=== PATIENT | female | born 1940 | race Caucasian/White ===

== ENCOUNTER 2022-04-18 10:30 | Outpatient (CLI) | payer MEDICARE, OTHER, SELFPAY ==
[2022-04-18 10:40] VITALS: BP 150/83; PULSE 82; RESP 16; O2SAT 96
[2022-04-18] MEDS: BRIMONIDINE TARTRATE 0.2% OPHTH 1 DROP EYE-BOTH ×2 (10:44→11:36)
[2022-04-18] MEDS: TETRACAINE 0.5% OPHTH 1 DROP EYE-BOTH ×3 (10:44→11:23)
--- NOTE | 2022-04-18 12:59 | W.PM.OPTPROC ---
Procedure Note Date of procedure: 04/18/[address] [facility] bill your pro fee for this procedure?: Yes Procedure Description: SURGEON: Shobha Panchal MD PREOPERATIVE DIAGNOSIS: Posterior capsular opacity, right and left eye POSTOPERATIVE DIAGNOSIS: Posterior capsular opacity, right and left eye PROCEDURE: YAG laser capsulotomy, both eyes ANESTHESIA: Topical. ESTIMATED BLOOD LOSS: None PATHOLOGY SPECIMEN: None COMPLICATIONS: None INDICATIONS: See consult note for details. The risks, benefits and alternatives of the procedure were explained to the patient, who elected to proceed and signed informed consent to do so. PROCEDURE: The patient was brought to the pre-holding area where the right and left eyes were identified as the operative eyes. I placed my initials above the eyes. The following was given in both eyes: The patient received 2 sets of 1 drop of 0.5% tetracaine and 1 drop of 1% tropicamide. They also received 1 drop of 0.2% brimonidine. They received 1 drop of 0.5% tetracaine immediately prior to bringing them back for the procedure. The patient was then brought to the procedure room where the right and left eyes were again identified as the operative eyes. A YAG Branden capsulotomy lens was placed on the right eye. The laser was administered using a total number of 10 shots with an energy of 2.4 mJ per shot for a total energy of 24 mJ. The patient tolerated the procedure well. A YAG Branden capsulotomy lens was placed on the left eye. The laser was administered using a total number of 16 shots with an energy of 2.4 mJ per shot for a total energy of 38 mJ. The patient tolerated the procedure well. DISPOSITION: The patient was taken back to the pre-holding area and given 1 drop of 0.2% brimonidine in both eyes. They were discharged to home in stable condition. The patient was instructed to call me or go to the emergency department with any sudden change, including dramatic loss of vision, severe pain in the eye or eyebrow region, nausea, or vomiting. The patient was instructed to use the 0.2% brimonidine 1 drop 2 times a day in both eyes for 1 week. The patient will follow up in the clinic in 1-2 weeks. Surgeon: Shobha Panchal MD
== END 2022-04-18 11:36 | disposition home or self-care (01) ==
PROVIDERS: Visit Provider Ophthalmology
DX: H26.9 Unspecified cataract (principal)
CPT/HCPCS: 66821; A9270

== ENCOUNTER 2022-12-26 20:01 | Emergency (ER) | payer MEDICARE, OTHER, SELFPAY ==
[2022-12-26 20:16] VITALS: BP 165/86; PULSE 87; RESP 18; TEMP 37.1; O2SAT 96; BMI 28.2
--- NOTE | 2022-12-26 20:35 | CRLHL7_ITS ---
For Patients: As a result of the Century Cures Act, medical imaging exams and procedure reports are released immediately into your electronic medical record. You may view this report before your referring provider. If you have questions, please contact your health care provider. INDICATION: Right posterior rib pain, chest pain TECHNIQUE: Chest and right ribs 2 views. COMPARISON: None FINDINGS: Cardiovascular and mediastinum: Heart size and vasculature are normal in caliber and appearance. Mediastinum is within normal limits. Lungs and pleural spaces: Lungs are clear. No sign of infiltrate or mass. No sign of pleural effusion. No pneumothorax. Biapical pleural thickening likely due to prior inflammatory process. Bones and soft tissues: Mild S-shaped scoliosis. Detailed oblique images of the right ribs demonstrate no fractures or bone lesions. IMPRESSION: Unremarkable chest and right ribs. Dictated by Rena Block MD @ 12/26/2022 9:19:22 PM (Electronically Signed)
--- NOTE | 2022-12-26 20:35 | ED.GENADULT ---
HPI - General Adult General Chief complaint: Abdominal Pain Stated complaint: Pain on right side bottom of her ribcage Time Seen by Provider: 12/26/22 20:24 History of Present Illness HPI narrative: This 82-year-old female comes in with pain along her right posterior ribs that began this afternoon. She does not report any particular injury event or strenuous activity. She does not report a cough or respiratory symptoms. She has not noted any skin changes. The pain is reproduced with certain movements. Related Data Home Medications Medication Instructions Recorded Confirmed alendronate 70 mg tablet 70 mg PO QWEEK 12/26/22 12/26/22 atorvastatin 10 mg tablet 10 mg PO DAILY 12/26/22 12/26/22 biotin 12/26/22 cetirizine 10 mg capsule (All Day 10 mg PO DAILY PRN 12/26/22 12/26/22 Allergy (cetirizine)) doxycycline hyclate 100 mg tablet 100 mg PO BID 12/26/22 12/26/22 famotidine 20 mg tablet 20 mg PO BID 12/26/22 12/26/22 Previous Rx's Medication Instructions Recorded hydrocodone 5 mg-acetaminophen 325 1 tab PO Q4-6H PRN pain #15 tabs 12/26/22 mg tablet Allergies Allergy/AdvReac Type Severity Reaction Status Date / Time No Known Drug Allergies Allergy Verified 12/26/22 20:21 Review of Systems Status of ROS: Reports: 10 or more systems reviewed and unremarkable except as noted in History and below Narrative: Constitutional: No fevers, no weight gain or loss. Eyes: No discharge. No vision changes. HENT: No congestion, no sore throat, no ear pain. Cardiovascular: No palpitations. Respiratory: No shortness of breath, no wheezes, no cough. Gastrointestinal: No abdominal pain, no vomiting, no diarrhea. Genitourinary: No dysuria, no hematuria. Musculoskeletal: Normal range of motion. Skin: No rashes, no pruritis. Neurological: No dizziness, weakness, sensory change, speech change. Endo/Heme/Allergies: No bruising or bleeding. No polydipsia. Pysch: no suicidality, no anxiety, no insomnia. All other systems reviewed and are negative. PFSH PFSH Social History Smoking Status: Never smoker Non-prescribed substance use: denies use Exam Narrative: Exam Narrative: Constitutional: Well-developed, well-nourished, no acute distress. HEENT: Normocephalic, atraumatic. Neck: Normal range of motion. Nontender. Supple. Heart: Regular. No murmurs. Normal rate. Intact distal pulses. Lungs: Clear to auscultation. No chest discomfort. No wheezes, rhonchi, or rales. Abdomen: Normal bowel sounds. Nontender. No rebound tenderness. Genitalia: Deferred. Back: No midline tenderness. Normal range of motion. Pain is located along the right posterior lateral ribs and is reproducible with certain movements. No skin changes in the back. Extremities: Normal range of motion. No injury. Skin: Intact. No rash. Warm. No erythema or pallor. Neurologic: No altered sensation. No weakness. Alert and oriented. Psychiatric: No suicidality. No anxiety or depression. No insomnia. Nursing notes and vitals signs are reviewed. Const: Vital Signs, click to edit/add: Vital Signs - 24 hr 12/26/22 20:16 Temperature 98.7 F Pulse Rate [Pulse Oximeter] 87 Respiratory Rate 18 [facility] 165/86 H Pulse Oximetry 96 Oxygen Delivery Me thod Room Air Course Vital Signs Vital signs: Initial Vital Signs Temperature 98.7 F 12/26/22 20:16 Temperature Source Temporal Artery Scan 12/26/22 20:16 Pulse Rate 87 12/26/22 20:16 Respiratory Rate 18 12/26/22 20:16 Blood Pressure 165/86 H 12/26/22 20:16 Blood Pressure Mean 112 H 12/26/22 20:16 Blood Pressure Position Supine 12/26/22 20:16 Pulse Oximetry 96 12/26/22 20:16 Oxygen Delivery Method Room Air 12/26/22 20:16 Vital Signs Temperature 98.7 F 12/26/22 20:16 Pulse Rate 87 12/26/22 20:16 Respiratory Rate 18 12/26/22 20:16 Blood Pressure 165/86 H 12/26/22 20:16 Pulse Oximetry 96 12/26/22 20:16 Oxygen Delivery Method Room Air 12/26/22 20:16 Temperature 98.7 F 12/26/22 20:16 Pulse Rate 87 12/26/22 20:16 Respiratory Rate 18 12/26/22 20:16 Blood Pressure 165/86 H 12/26/22 20:16 Pulse Oximetry 96 12/26/22 20:16 Oxygen Delivery Method Room Air 12/26/22 20:16 Medical Decision Making MDM Narrative Medical decision making narrative: This patient comes in with pain along her right lateral posterior ribs. There was no particular injury event or strenuous activity. She has no skin changes to suggest shingles. Chest x-ray shows no acute findings. She has normal vital signs. She did receive a rib belt and I did provide a prescription for some tablets of [place]. Most likely this is a chest wall pain that should resolve over time. At the time of discharge the patient appears safe for outpatient management. The treatment plan is reviewed along with written and verbal return precautions. Reasons to return and the importance of close followup were also reviewed. Imaging Data Chest x-ray: Radiologist's impression: Unremarkable chest and right ribs. Discharge Plan Discharge Clinical Impression: Rib pain on right side Patient Disposition: Home w/ Parent or Adult Condition: Unchanged Additional Instructions: Wear rib belt as needed. Take medication as needed and indicated. Follow up with MD or return if worsening. Prescriptions: New hydrocodone-acetaminophen 5-325 mg tablet 1 tab PO Q4-6H PRN (Reason: pain) Qty: 15 0RF No Action atorvastatin 10 mg tablet 10 mg PO DAILY famotidine 20 mg tablet 20 mg PO BID doxycycline hyclate 100 mg tablet 100 mg PO BID alendronate 70 mg tablet 70 mg PO QWEEK biotin All Day Allergy (cetirizine) 10 mg capsule 10 mg PO DAILY PRN Follow Up/Referrals: Provider,Not a Local [Referring] - Stand Alone Forms: Prior Knowledge Info Instructions
[2022-12-26] MEDS: HYDROCODONE-ACETAMIN 5-325 MG 1 TAB PO (21:47)
== END 2022-12-26 21:48 | disposition home or self-care (01) ==
PROVIDERS: Emergency Provider Emergency Medicine Emergency Medical Services; PCP Family Medicine
DX: R07.81 Pleurodynia (principal)
CPT/HCPCS: 71101; 99283; 99284; A9270

== ENCOUNTER 2023-03-20 03:45 | Inpatient (IN) | payer MEDICARE, OTHER, SELFPAY ==
[2023-03-20] VITALS (35 sets, daily range): BP systolic 112–169; BP diastolic 71–94; PULSE 71–98; RESP 16–22; TEMP 36.3–37; O2SAT 90–99; BMI 27.5; BMI 27.3
--- NOTE | 2023-03-20 04:21 | CRLHL7_ITS ---
For Patients: As a result of the Century Cures Act, medical imaging exams and procedure reports are released immediately into your electronic medical record. You may view this report before your referring provider. If you have questions, please contact your health care provider. INDICATION: bloody diarrhea, suspect ischemic TECHNIQUE: CT abdomen and pelvis with 79 cc Isovue 370 IV contrast. COMPARISON: None. FINDINGS: Hepatic steatosis. Gallbladder and biliary tree are normal. The spleen, adrenal glands and pancreas are within normal limits. Small bilateral renal cysts. No hydronephrosis. Unremarkable appearing bladder. No evidence of obstruction. Colonic wall thickening and mild inflammation predominately involving the transverse colon and proximal descending colon. There is relative hypoenhancement of the colonic wall near the splenic flexure. The sigmoid colon is decompressed with an outpouching measuring 2.6 x 2.5 cm likely representing a large diverticulum. No evidence of diverticulitis. A contained perforation and additional consideration although felt less likely. No significant free fluid and no free air. Small fat containing umbilical hernia. Abdominal aorta abnormal, with moderate aortoiliac atherosclerosis. Pelvic organs are unremarkable. Passive bibasilar atelectasis. IMPRESSION: Colonic wall thickening and mild inflammation predominately involving the transverse colon and proximal descending colon. There is relative hypoenhancement of the colonic wall near the splenic flexure. Findings may indicate infectious/inflammatory colitis although ischemic colitis cannot be excluded given hypoenhancement and at the splenic flexure. However, there is no evidence of portal venous gas or pneumatosis. Recommend correlation with lactic acid. Patent portal vein. Patent mesenteric arteries. The sigmoid colon is decompressed with an outpouching measuring 2.6 x 2.5 cm likely representing a large diverticulum. No evidence of diverticulitis. A contained perforation is felt less likely. Evaluation for active GI bleed and ischemic colitis is limited on this single phase study. Please note that all CT scans at this facility use dose modulation, iterative reconstruction, and/or weight-based dosing when appropriate to reduce radiation dose to as low as reasonably achievable. Dictated by Mauricio Castillo MD @ 03/20/2023 7:01:16 AM (Electronically Signed)
--- NOTE | 2023-03-20 04:23 | ED.GIBLEED ---
HPI - GI Bleed General Chief complaint: GI Bleed Stated complaint: Feeling Ill Time Seen by Provider: 03/20/23 04:05 Source: patient and family Mode of arrival: ambulatory Limitations: no limitations History of Present Illness HPI Narrative: 82-year-old female with no significant history of chronic GI disease or coronary artery disease, nonsmoker presents to the emergency department with abdominal pain that woke her from sleep at about 3:00 a.m.. Went to bed at about 10 30 last night, feeling well with no signs of oncoming illness. Awoke feeling weak and sweaty with lower abdominal ache. She was mildly nauseated and thought that she was likely going to have a bowel movement, assured herself to the toilet. Once there she had several very loose bowel movements over the course of 15 minutes. She did not look at them to inspect the contents and did flush them. Reports that after about 15 minutes she must have passed out while on the toilet and slumped over as she woke up with her head against the wall. Estimates that she could not have been out for more than a couple of minutes. There was no seizure-like activity, tongue biting. The event was unwitnessed. Reports that she was able to get herself up and clean herself with a wet washcloth, noticing that there were stringy blood clots and aaron red blood. She is uncertain if there were was blood in the diarrhea as she had flushed it. She has not continued to notice persistent bleeding. She still has achy lower abdominal pain, right and left and suprapubic region. No dysuria. No trauma or injury. No rectal pain. No gynecological changes. No prior history of similar symptoms. Her last colonoscopy was well over 10 years ago she reports but has no history of chronic GI illness family history of such or family history of GI cancers. She says that she actually does have a upcoming colonoscopy scheduled. She does not use any anticoagulants including NSAIDs or aspirin. No history of kidney disease. She did not try any interventions to help with her symptoms prior to coming to the ED. Past medical history benign per her report. Surgical history only notable for breast biopsy in a tubal ligation. No long-term medications, no allergies. ROS notable for the generalized and GI symptoms as above, otherwise denies times 12 systems Related Data Home Medications Medication Instructions Recorded Confirmed atorvastatin 10 mg tablet 10 mg PO DAILY 12/26/22 03/20/23 biotin 12/26/22 cetirizine 10 mg capsule (All Day 10 mg PO DAILY PRN 12/26/22 12/26/22 Allergy (cetirizine)) doxycycline hyclate 100 mg tablet 100 mg PO BID 12/26/22 12/26/22 famotidine 20 mg tablet 20 mg PO BID 12/26/22 12/26/22 Previous Rx's Medication Instructions Recorded hydrocodone 5 mg-acetaminophen 325 1 tab PO Q4-6H PRN pain #15 tabs 12/26/22 mg tablet Allergies Allergy/AdvReac Type Severity Reaction Status Date / Time No Known Drug Allergies Allergy Verified 03/20/23 05:28 PFSH PFS Social History Smoking Status: Never smoker Do you use any of these nicotine containing products: None Second hand tobacco smoke exposure: No How often do you have a drink containing alcohol: never AUDIT-C Alcohol total score: 0 Non-prescribed substance use: denies use service: No Exam Const: Vital Signs, click to edit/add: Vital Signs - 24 hr 03/20/23 03:47 03/20/23 03:57 03/20/23 04:02 Temperature 97.4 F L Pulse Rate Pulse Rate [Pulse Oximeter] 81 Respiratory Rate 16 16 Blood Pressure 140/81 H 140/77 H Blood Pressure [Ri ght Upper Arm] 147/85 H Pulse Oximetry 95 Oxygen Delivery Me thod Room Air 03/20/23 04:03 03/20/23 04:15 03/20/23 04:33 Temperature Pulse Rate 81 81 Pulse Rate [Pulse Oximeter] Respiratory Rate Blood Pressure 112/92 H Blood Pressure [Ri ght Upper Arm] Pulse Oximetry 95 96 Oxygen Delivery Me thod 03/20/23 04:35 03/20/23 04:45 03/20/23 05:12 Temperature Pulse Rate 81 86 91 Pulse Rate [Pulse Oximeter] Respiratory Rate Blood Pressure Blood Pressure [Ri ght Upper Arm] Pulse Oximetry 95 90 97 Oxygen Delivery Me thod 03/20/23 05:13 03/20/23 05:14 03/20/23 05:15 Temperature Pulse Rate 91 88 87 Pulse Rate [Pulse Oximeter] Respiratory Rate Blood Pressure Blood Pressure [Ri ght Upper Arm] Pulse Oximetry 98 96 97 Oxygen Delivery Me thod 03/20/23 05:30 03/20/23 05:32 03/20/23 05:45 Temperature Pulse Rate 89 91 91 Pulse Rate [Pulse Oximeter] Respiratory Rate Blood Pressure 167/89 H Blood Pressure [Ri ght Upper Arm] Pulse Oximetry 97 96 92 Oxygen Delivery Me thod 03/20/23 06:00 03/20/23 06:02 03/20/23 06:15 Temperature Pulse Rate 88 88 90 Pulse Rate [Pulse Oximeter] Respiratory Rate Blood Pressure 162/87 H Blood Pressure [Ri ght Upper Arm] Pulse Oximetry 94 94 97 Oxygen Delivery Me thod 03/20/23 06:30 03/20/23 06:32 03/20/23 06:45 Temperature Pulse Rate 84 84 98 Pulse Rate [Pulse Oximeter] Respiratory Rate Blood Pressure 164/87 H Blood Pressure [Ri ght Upper Arm] Pulse Oximetry 96 96 94 Oxygen Delivery Me thod 03/20/23 07:11 Temperature 98.6 F Pulse Rate Pulse Rate [Pulse Oximeter] 90 Respiratory Rate 22 Blood Pressure Blood Pressure [Ri ght Upper Arm] Pulse Oximetry 95 Oxygen Delivery Me thod Room Air Documenting provider has reviewed patient's vital signs: yes Common normals: no apparent distress and alert General appearance: cooperative, comfortable and well kempt HENMT: Common normals: normocephalic Head and scalp: normocephalic Face and sinus: normal facial exam Mouth: oral and palatal mucosa normal Eye: Common normals: conjunctivae normal General eye: normal appearance of both eyes Conjunctiva: conjunctiva(e) normal Neck & C-Spine: Common normals: full ROM and no lymphadenopathy General: normal visual inspection Resp: Common normals: normal respiratory effort, no use of accessory muscles and clear to auscultation bilaterally Effort & inspection: able to speak in complete sentences Auscultation: clear to auscultation bilaterally Cardio: Common normals: regular rate, regular rhythm, S1 normal heart sound, S2 normal heart sound and no murmurs Rate: regular rate Rhythm: regular rhythm Heart sounds: S1 normal and S2 normal GI: Common normals: Normal to inspection, nondistended, normoactive bowel sounds present, soft to palpation, no hepatosplenomegaly and no masses Palpation: soft and no hepatosplenomegaly Other: Mildly tender diffusely to lower abdomen without any obvious mass. Scarring consistent with old technique of tubal ligation. : Common normals: no CVA tenderness Bladder/kidney exam: no CVA tenderness Back & Pelvis: Common normals: no CVA tenderness Extremity: Common normals: normal to inspection, full ROM, normal capillary refill and no pedal edema Neuro: Sensorium/orientation: alert Speech: speech normal Motor exam: strength 5/5 throughout and no movement abnormalities noted Psych: Appearance: well kempt Attitude: engaged Activity/motor behavior: appropriate eye contact Mood and affect: euthymic mood Memory/cognition: memory grossly intact Insight: insight good Judgement: judgment good Skin: Common normals: no rashes or lesions noted General skin exam: no rashes or lesions noted Course Course ED Course: Differential diagnosis including ischemic bowel, infectious colitis, volvulus, tumor, autoimmune disease, inflammatory disease, av malformation, among others. No signs of acute hypotension or hemorrhagic shock. I suspect that she did in fact have a syncopal episode and I do think that she is under estimating the amount of bleeding if she was cleaning up clots after the episode. Recommend placing an IV, normal saline, Zofran for the nausea. CT scan of the abdomen and pelvis with contrast, basic labs including lactate, CRP, comprehensive metabolic panel, CBC. Will need rectal exam and serial hemoglobin, likely admission. Reevaluation(s) Time of Reevaluation #1: 06:45 Reevaluation #1: Patient got to the bathroom, had a few more clots, thought that the source may be vaginal. Was able to get back in the room to perform her vaginal and rectal exams. Vaginal exam shows a scant amount of blood along this superior vagina but really no active source of bleeding. I can see the cervix and there is certainly no active bleeding or dilation coming from that. Urethra appears normal. Vaginal tissues are atrophic but otherwise appropriate. The rectum is examined and there was no source of external bleeding identified, no hemorrhoids. Internal exam shows normal rectal tone. No masses in the rectal vault. Removal of the finger shows dark red blood on my finger, no elements of stool. I do Hemoccult this and it is expectedly positive. With we called Radiology as it has been [address] and we are still in line waiting for read. Patient remains hemodynamically stable. Time of Reevaluation #2: 07:18 Reevaluation #2: Reviewed CT findings with Dr. Baptiste, surgeon on-call. Recommends medical management, serial hemoglobins and lactate, serial abdominal exams. She will see the patient before her morning clinic. Spoke with Dr. Conteh from the hospitalist team he will also admit the patient and continue monitoring. She will remain NPO, start IV fluids. Has not required any pain medications. Vital Signs Vital signs: Initial Vital Signs Temperature 97.4 F L 03/20/23 03:47 Temperature Source Temporal Artery Scan 03/20/23 03:47 Pulse Rate 81 03/20/23 03:47 Pulse Rhythm Regular 03/20/23 03:47 Pulse Strength 3+ Normal 03/20/23 03:47 Respiratory Rate 16 03/20/23 03:47 Blood Pressure 147/85 H 03/20/23 03:47 Blood Pressure Mean 105 03/20/23 03:47 Blood Pressure Position Supine 03/20/23 03:47 Pulse Oximetry 95 03/20/23 03:47 Oxygen Delivery Method Room Air 03/20/23 03:47 Vital Signs Temperature 97.4 F L 03/20/23 03:47 Pulse Rate 81 03/20/23 03:47 Respiratory Rate 16 03/20/23 03:47 Blood Pressure 147/85 H 03/20/23 03:47 Pulse Oximetry 95 03/20/23 03:47 Oxygen Delivery Method Room Air 03/20/23 03:47 Temperature 98.6 F 03/20/23 07:11 Pulse Rate 90 03/20/23 07:11 Respiratory Rate 22 03/20/23 07:11 Blood Pressure 164/87 H 03/20/23 06:32 Pulse Oximetry 95 03/20/23 07:11 Oxygen Delivery Method Room Air 03/20/23 07:11 MDM - GI Bleed Lab Data Attestation: I reviewed the patient's lab results. Lab results narrative: Elevated lactate, stable hemoglobin. Labs: Lab Results 03/20/23 03/20/23 03/20/23 Range/Units 04:21 04:25 04:50 WBC 10.21 (4.50-11.00) K/uL RBC 5.42 H (4.00-5.20) m/uL Hgb 16.1 H (12.0-16.0) gm/dL Hct 48.7 (33.0-51.0) % MCV 90 (80-100) fL MCH 30 (26-34) pg MCHC 33 (32-36) gm/dL RDW Coeff of Eyad 15.0 (11.5-15.5) % Plt Count 158 (140-440) K/uL Neut % (Auto) 87.2 H (42.0-72.0) % Lymph % (Auto) 6.0 L (20-44) % [place] % (Auto) 6.3 (0.0-11.0) % Eos % (Auto) 0.1 (0.0-7.0) % Baso % (Auto) 0.2 (0.0-3.0) % Neut # (Auto) 8.90 H (1.7-7.0) K/uL Lymph # (Auto) 0.60 L (0.90-2.90) K/uL [place] # (Auto) 0.60 (0.00-0.90) K/UL Eos # (Auto) 0.01 (0.00-0.50) K/uL Baso # (Auto) 0.02 (0.00-0.30) K/uL Abs Immat Gran (auto) 0.02 (0.00-0.30) K/uL Imm/Tot Granulo (auto) 0.2 % Sodium 140 (135-149) mmol/L Potassium 4.4 (3.6-5.1) mmol/L Chloride 104 (96-114) mmol/L Carbon Dioxide 23 (20-32) mmol/L Anion Gap 13 (7-15) mEq/L BUN 23 (7-30) mg/dL Creatinine 0.8 (0.5-1.5) mg/dL Estimated Creat Clear 38.75 Estimated GFR 74 ml/min Glucose 140 H (60-115) mg/dL Lactate 2.2 H (0.5-1.9) mmol/L Calcium 10.1 (8.4-10.6) mg/dL Total Bilirubin 0.7 (0.1-1.5) mg/dL AST 49 H (12-35) U/L ALT 36 H (4-35) U/L Alkaline Phosphatase 74 (40-150) U/L Troponin I 0.01 (0.01-0.04) ng/mL C-Reactive Protein 0.5 (0.5-1.0) mg/dL Total Protein 8.7 H (6.0-8.3) g/dL Albumin 4.9 (3.3-5.0) g/dL Urine Color (Yellow) Urine Appearance (Clear) Urine pH (5.0-8.5) Ur Specific [place] (1.000-1.030) Urine Protein (Negative) Urine Glucose (UA) (Negative) Urine Ketones (Negative) Urine Blood (Negative) Urine Nitrite (Negative) Urine Bilirubin (Negative) Urine Urobilinogen (0.2-1.0) Ur Leukocyte Esterase (Negative) Urine RBC (0-2) Urine WBC (0-5) Ur Squamous Epith Cells (None-Few) Urine Bacteria (None) Lab Acknowledgement POC Creatinine 0.9 (0.6-1.3) mg/dl POC Troponin I 0.01 (0.01-0.04) ng/ml 03/20/23 03/20/23 Range/Units 05:06 06:30 WBC (4.50-11.00) K/uL RBC (4.00-5.20) m/uL Hgb (12.0-16.0) gm/dL Hct (33.0-51.0) % MCV (80-100) fL MCH (26-34) pg MCHC (32-36) gm/dL RDW Coeff of Eyad (11.5-15.5) % Plt Count (140-440) K/uL Neut % (Auto) (42.0-72.0) % Lymph % (Auto) (20-44) % [place] % (Auto) (0.0-11.0) % Eos % (Auto) (0.0-7.0) % Baso % (Auto) (0.0-3.0) % Neut # (Auto) (1.7-7.0) K/uL Lymph # (Auto) (0.90-2.90) K/uL [place] # (Auto) (0.00-0.90) K/UL Eos # (Auto) (0.00-0.50) K/uL Baso # (Auto) (0.00-0.30) K/uL Abs Immat Gran (auto) (0.00-0.30) K/uL Imm/Tot Granulo (auto) % Sodium (135-149) mmol/L Potassium (3.6-5.1) mmol/L Chloride (96-114) mmol/L Carbon Dioxide (20-32) mmol/L Anion Gap (7-15) mEq/L BUN (7-30) mg/dL Creatinine (0.5-1.5) mg/dL Estimated Creat Clear Estimated GFR ml/min Glucose (60-115) mg/dL Lactate (0.5-1.9) mmol/L Calcium (8.4-10.6) mg/dL Total Bilirubin (0.1-1.5) mg/dL AST (12-35) U/L ALT (4-35) U/L Alkaline Phosphatase (40-150) U/L Troponin I (0.01-0.04) ng/mL C-Reactive Protein (0.5-1.0) mg/dL Total Protein (6.0-8.3) g/dL Albumin (3.3-5.0) g/dL Urine Color Yellow (Yellow) Urine Appearance Cloudy A (Clear) Urine pH 6.5 (5.0-8.5) Ur Specific [place] 1.020 (1.000-1.030) Urine Protein 1+ A (Negative) Urine Glucose (UA) Negative (Negative) Urine Ketones Negative (Negative) Urine Blood 3+ A (Negative) Urine Nitrite Negative (Negative) Urine Bilirubin Negative (Negative) Urine Urobilinogen 0.2 (0.2-1.0) Ur Leukocyte Esterase 1+ A (Negative) Urine RBC >100 A (0-2) Urine WBC 5-10 A (0-5) Ur Squamous Epith Cells Few (None-Few) Urine Bacteria Few A (None) Lab Acknowledgement Test Added POC Creatinine (0.6-1.3) mg/dl POC Troponin I (0.01-0.04) ng/ml Imaging Data CT scan - abdomen: Attestation: I have reviewed the pertinent imaging results. My impression: Colonic changes suspicious for ischemia Radiologist's impression: IMPRESSION: Colonic wall thickening and mild inflammation predominately involving the transverse colon and proximal descending colon. There is relative hypoenhancement of the colonic wall near the splenic flexure. Findings may indicate infectious/inflammatory colitis although ischemic colitis cannot be excluded given hypoenhancement and at the splenic flexure. However, there is no evidence of portal venous gas or pneumatosis. Recommend correlation with lactic acid. ECG Data Attestation: I personally reviewed and interpreted this ECG as follows: Prior ECG tracings: not available for review Interpretation: Normal sinus rhythm, rate of 80. No significant ST or T-wave abnormalities, good R-wave progression. Little bit of enlargement of the P waves in lead to suggestive of some left atrial enlargement which would not be unexpected for her age. Overall excellent EKG. Discharge Plan Discharge Clinical Impression: Acute ischemic colitis Patient Disposition: Admitted As Inpatient
[2023-03-20 04:35] LABS: Lactate* 2.2 mmol/L (0.5-1.9)
[2023-03-20] MEDS: ONDANSETRON 2 MG/ML inj 4 MG IVP (04:40)
[2023-03-20] MEDS: 0.9 % SODIUM CHLORIDE 1000 ml 1,000 ML 500 ML IV (04:40)
[2023-03-20 04:42] LABS: Troponin, Point-of-Care* 0.01 ng/ml (0.01-0.04)
[2023-03-20 04:51] LABS: Albumin* 4.9 g/dL (3.3-5.0); Chloride* 104 mmol/L (96-114); Sodium* 140 mmol/L (135-149)
[2023-03-20 04:52] LABS: Creatinine, Point-of-Care* 0.9 mg/dl (0.6-1.3)
[2023-03-20 04:52] LABS: Potassium* 4.4 mmol/L (3.6-5.1)
[2023-03-20 04:54] LABS: Alanine Aminotransferase* 36 U/L (4-35); Alkaline Phosphatase* 74 U/L (40-150); Anion Gap 13 mEq/L (7-15); Aspartate Amino Transferase* 49 U/L (12-35); Bilirubin Total* 0.7 mg/dL (0.1-1.5); Blood Urea Nitrogen* 23 mg/dL (7-30); Carbon Dioxide* 23 mmol/L (20-32); Creatinine* 0.8 mg/dL (0.5-1.5); Est. Creatinine Clearance* 38.75; Estimated Glomerular Filt Rate 74 ml/min; Total Protein* 8.7 g/dL (6.0-8.3)
[2023-03-20 04:55] LABS: Calcium* 10.1 mg/dL (8.4-10.6); Glucose* 140 mg/dL (60-115)
[2023-03-20 04:57] LABS: C Reactive Protein* 0.5 mg/dL (0.5-1.0)
[2023-03-20 05:06] LABS: Troponin I* 0.01 ng/mL (0.01-0.04)
[2023-03-20 05:14] LABS: Basophils Absolute Auto 0.02 K/uL (0.00-0.30); Basophils Percent Auto 0.2 % (0.0-3.0); Eosinophils Absolute Auto 0.01 K/uL (0.00-0.50); Eosinophils Percent Auto 0.1 % (0.0-7.0); Hematocrit 48.7 % (33.0-51.0); Hemoglobin* 16.1 gm/dL (12.0-16.0); Immature Granulocytes Abs Auto 0.02 K/uL (0.00-0.30); Immature Granulocytes Pct Auto 0.2 %; Mean Corpuscular HGB Conc 33 gm/dL (32-36); Mean Corpuscular Hemoglobin 30 pg (26-34); Mean Corpuscular Volume 90 fL (80-100); Monocytes Percent Auto 6.3 % (0.0-11.0); Neutrophils Percent Auto 87.2 % (42.0-72.0); Platelet Count* 158 K/uL (140-440); Red Blood Count 5.42 m/uL (4.00-5.20); Slide Review Reflex No; White Blood Count* 10.21 K/uL (4.50-11.00)
--- NOTE | 2023-03-20 06:33 | PC.NURSE ---
Patient ambulated to bathroom. Voided 600cc of yellow urine with about 10 clots in them. Patient had bright red blood when she wiped. Couldn't tell if the blood was coming from the vagina or the uretra. notified. UA ordered and sent.
[2023-03-20 06:37] LABS: Appearance Urine Cloudy (Clear); Bilirubin Urine Negative (Negative); Blood Urine 3+ (Negative); Color Urine Yellow (Yellow); Glucose Urine Negative (Negative); Ketones Urine Negative (Negative); Leukocyte Esterase Urine 1+ (Negative); Nitrite Urine Negative (Negative); Protein Urine 1+ (Negative); Urobilinogen Urine 0.2 (0.2-1.0); pH Urine 6.5 (5.0-8.5)
[2023-03-20 06:46] LABS: RBC Urine >100 (0-2)
[2023-03-20 06:47] LABS: Bacteria Urine Few; Squamous Epithelial Cell Urine Few (None-Few)
--- NOTE | 2023-03-20 06:48 | ED.NURSE ---
RN chaperoned patients vaginal and rectal exam. patient tolerated exam well. Hemocult + at the bedside.
--- NOTE | 2023-03-20 07:17 | ED.NURSE ---
hs aware of admission. dr Serrano in room explaining findings.
[2023-03-20] MEDS: LACTATED RINGERS 1000 ML 1,000 ML 110 ML IV (07:29)
[2023-03-20] MEDS: MORPHINE 4 MG/ML INJ IVP ×2 (07:40→11:30)
[2023-03-20] MEDS: PROCHLORPERAZINE 5 MG/ML VIAL IVP (07:42)
[2023-03-20 09:41] LABS: Lactate* 3.1 mmol/L (0.5-1.9)
[2023-03-20] MEDS: PANTOPRAZOLE SODIUM 40 MG INJ IVP ×2 (09:59→20:15)
[2023-03-20] MEDS: SODIUM CHLORIDE 0.9 % (FLUSH) 10 ML SYRINGE 5 ML IVF ×2 (10:03→20:15)
[2023-03-20 10:05] LABS: Phosphorus* 3.7 mg/dL (2.5-4.5)
--- NOTE | 2023-03-20 11:12 | P.IMHP_ITS ---
Hospitalist- H&P: HPI History of Present Illness Date Seen: 03/20/23 Chief complaint: Feeling Ill Narrative: Umu Zacarias is a 82 year old female past medical history significant for recent Lyme disease (December 2022) treated with antibiotics, osteoporosis, hyperlipidemia is admitted to the medical floor from the ED for further management suspected ischemic colitis. Patient reports feeling well yesterday without recent illness. Awoke in the middle the night, diaphoretic, with cramping lower abdominal pain. Went to the bathroom where she had a large bowel movement and apparently a syncopal episode wherein she woke with her head leaning against the bathroom wall while sitting on the toilet. Denies falling to the floor. While wiping, noticed blood however did not look at the stool in the toilet. Has since felt more weak with continued lower abdominal pain. Had an episode of nausea without vomiting which has since resolved. In the ED, rectal exam showed maroon stool. CT showing infectious/inflammatory colitis versus ischemic colitis. Mildly elevated lactate noted. Hemoglobin 16.1. Patient remained vitally stable without hypotension, tachycardia, tachypnea. Currently, patient denies headache. Admits to chronic intermittent dizziness since Lyme disease diagnosis. Denies recent fevers or chills. Denies chest pain or shortness of breath. No recent cough or congestion. Continues to have lower abdominal pain. No further nausea. Denies recent travel outside of the [facility]. No known infectious contacts. No recent antibiotic use. Nonsmoker. Denies alcohol use. Review of Systems Narrative: REVIEW OF SYSTEMS: Complete review of systems performed and negative unless otherwise stated in HPI or below. [facility] Medical History (Updated 03/20/23 @ 11:47 by Elle Hummel PA-C) Osteoporosis ?M81.0 - Age-related osteoporosis without current pathological fracture (ICD- 10) Hyperlipidemia ?E78.5 - Hyperlipidemia, unspecified (ICD-10) Surgical History (Updated 03/20/23 @ 11:29 by Yehuda Connelly MD) History of hand surgery ?Z98.890 - Other specified postprocedural states (ICD-10) H/O breast biopsy ?Z98.890 - Other specified postprocedural states (ICD-10) Tubal ligation status ?Z98.51 - Tubal ligation status (ICD-10) Social History Smoking Status: Never smoker Do you use any of these nicotine containing products: None Second hand tobacco smoke exposure: No How often do you have a drink containing alcohol: never AUDIT-C Alcohol total score: 0 Non-prescribed substance use: denies use service: No Meds Home Medications and Allergies Home Medications Medication Instructions Recorded Confirmed Type cetirizine 10 mg capsule (All Day 10 mg PO DAILY 12/26/22 03/20/23 History Allergy (cetirizine)) alendronate 70 mg tablet 70 mg PO QWEEK 03/20/23 03/20/23 History atorvastatin 20 mg tablet 20 mg PO QPM 03/20/23 03/20/23 History biotin 2,500 mcg chewable tablet 2,500 mcg PO DAILY 03/20/23 03/20/23 History diphenhydramine HCl 25 mg capsule 25 mg PO HS PRN 03/20/23 03/20/23 History (Allergy Medication) Home Medication Comments: Recently restarted atorvastatin Allergies Allergy/AdvReac Type Severity Reaction Status Date / Time No Known Drug Allergies Allergy Verified 03/20/23 05:28 Exam Narrative: Exam Narrative: PHYSICAL EXAM General: Very pleasant, conversant, NAD HEENT: Normocephalic, atraumatic, sclera white, EOMI, oral mucosa moist Cardiovascular: RRR, S1S2. No pitting edema Pulmonary: CTA bilaterally without rhonchi, rales, expiratory wheezes. No dyspnea Abdominal: Soft, nondistended, mild tenderness lower abdomen, no guarding Neurological: Alert, answering questions appropriately, cranial nerves intact, no focal findings Extremities: No gross joint deformity or swelling. AROMI. Neurovascularly intact Skin: Warm, dry. No rash noted on exposed skin Const: Vital Signs, click to edit/add: Vital Signs - 24 hr 03/20/23 03:47 03/20/23 03:57 03/20/23 04:02 Temperature 97.4 F L Pulse Rate Pulse Rate [Pulse Oximeter] 81 Respiratory Rate 16 16 Blood Pressure 140/81 H 140/77 H Blood Pressure [Ri ght Upper Arm] 147/85 H Pulse Oximetry 95 Oxygen Delivery Me thod Room Air 03/20/23 04:03 03/20/23 04:15 03/20/23 04:33 Temperature Pulse Rate 81 81 Pulse Rate [Pulse Oximeter] Respiratory Rate Blood Pressure 112/92 H Blood Pressure [Ri ght Upper Arm] Pulse Oximetry 95 96 Oxygen Delivery Me thod 03/20/23 04:35 03/20/23 04:45 03/20/23 05:12 Temperature Pulse Rate 81 86 91 Pulse Rate [Pulse Oximeter] Respiratory Rate Blood Pressure Blood Pressure [Ri ght Upper Arm] Pulse Oximetry 95 90 97 Oxygen Delivery Me thod 03/20/23 05:13 03/20/23 05:14 03/20/23 05:15 Temperature Pulse Rate 91 88 87 Pulse Rate [Pulse Oximeter] Respiratory Rate Blood Pressure Blood Pressure [Ri ght Upper Arm] Pulse Oximetry 98 96 97 Oxygen Delivery Me thod 03/20/23 05:30 03/20/23 05:32 03/20/23 05:45 Temperature Pulse Rate 89 91 91 Pulse Rate [Pulse Oximeter] Respiratory Rate Blood Pressure 167/89 H Blood Pressure [Ri ght Upper Arm] Pulse Oximetry 97 96 92 Oxygen Delivery Me thod 03/20/23 06:00 03/20/23 06:02 03/20/23 06:15 Temperature Pulse Rate 88 88 90 Pulse Rate [Pulse Oximeter] Respiratory Rate Blood Pressure 162/87 H Blood Pressure [Ri ght Upper Arm] Pulse Oximetry 94 94 97 Oxygen Delivery Me thod 03/20/23 06:30 03/20/23 06:32 03/20/23 06:45 Temperature Pulse Rate 84 84 98 Pulse Rate [Pulse Oximeter] Respiratory Rate Blood Pressure 164/87 H Blood Pressure [Ri ght Upper Arm] Pulse Oximetry 96 96 94 Oxygen Delivery Me thod 03/20/23 07:00 03/20/23 07:01 03/20/23 07:11 Temperature 98.6 F Pulse Rate 88 84 Pulse Rate [Pulse Oximeter] 90 Respiratory Rate 22 Blood Pressure 169/94 H Blood Pressure [Ri ght Upper Arm] Pulse Oximetry 95 96 95 Oxygen Delivery Me thod Room Air 03/20/23 07:15 03/20/23 07:30 03/20/23 07:32 Temperature Pulse Rate 90 87 90 Pulse Rate [Pulse Oximeter] Respiratory Rate Blood Pressure 161/89 H Blood Pressure [Ri ght Upper Arm] Pulse Oximetry 96 95 96 Oxygen Delivery Me thod 03/20/23 07:45 Temperature Pulse Rate 92 Pulse Rate [Pulse Oximeter] Respiratory Rate Blood Pressure Blood Pressure [Ri ght Upper Arm] Pulse Oximetry 97 Oxygen Delivery Il thod Hospitalist - H&P: Result Labs Labs: Short CBC 03/20/23 03/20/23 Range/Units 04:25 09:36 WBC 10.21 (4.50-11.00) K/uL Hgb 16.1 H 15.0 (12.0-16.0) gm/dL Hct 48.7 (33.0-51.0) % Plt Count 158 (140-440) K/uL BMP 03/20/23 04:25 Sodium 140 Potassium 4.4 Chloride 104 Carbon Dioxide 23 BUN 23 Creatinine 0.8 Glucose 140 H Calcium 10.1 Cardiac Enzymes 03/20/23 Range/Units 04:25 Troponin I 0.01 (0.01-0.04) ng/mL Liver Function 03/20/23 Range/Units 04:25 Total Bilirubin 0.7 (0.1-1.5) mg/dL AST 49 H (12-35) U/L ALT 36 H (4-35) U/L Alkaline Phosphatase 74 (40-150) U/L Albumin 4.9 (3.3-5.0) g/dL Urine 03/20/23 Range/Units 06:30 Urine Color Yellow (Yellow) Urine Appearance Cloudy A (Clear) Urine pH 6.5 (5.0-8.5) Ur Specific [place] 1.020 (1.000-1.030) Urine Protein 1+ A (Negative) Urine Glucose (UA) Negative (Negative) ECG Interpretation: Sinus rhythm with premature supraventricular complexes. Ventricular rate 80. QTC [address] scan - abdomen: Radiologist's impression: Hepatic steatosis. Gallbladder and biliary tree are normal. The spleen, adrenal glands and pancreas are within normal limits. Small bilateral renal cysts. No hydronephrosis. Unremarkable appearing bladder. No evidence of obstruction. Colonic wall thickening and mild inflammation predominately involving the transverse colon and proximal descending colon. There is relative hypoenhancement of the colonic wall near the splenic flexure. The sigmoid colon is decompressed with an outpouching measuring 2.6 x 2.5 cm likely representing a large diverticulum. No evidence of diverticulitis. A contained perforation and additional consideration although felt less likely. No significant free fluid and no free air. Small fat containing umbilical hernia. Abdominal aorta abnormal, with moderate aortoiliac atherosclerosis. Pelvic organs are unremarkable. Passive bibasilar atelectasis. IMPRESSION: Colonic wall thickening and mild inflammation predominately involving the transverse colon and proximal descending colon. There is relative hypoenhancement of the colonic wall near the splenic flexure. Findings may indicate infectious/inflammatory colitis although ischemic colitis cannot be excluded given hypoenhancement and at the splenic flexure. However, there is no evidence of portal venous gas or pneumatosis. Recommend correlation with lactic acid. Patent portal vein. Patent mesenteric arteries. The sigmoid colon is decompressed with an outpouching measuring 2.6 x 2.5 cm likely representing a large diverticulum. No evidence of diverticulitis. A contained perforation is felt less likely. Evaluation for active GI bleed and ischemic colitis is limited on this single phase study. Assessment and Plan Assessment and plan (1) Colitis: Problem comment: -CT shows infectious/inflammatory versus ischemic colitis. Large diverticulum without evidence of diverticulitis. -lactate trending up. No leukocytosis. Afebrile. Remains vitally stable. -continue LR with bolus and repeat lactate -NPO -pain and nausea management as needed. Pulse ox monitoring. -IV PPI b.i.d. -GI pathogen/stool culture ordered -hemoglobin on admission 16.1, repeat 15. Recheck a 4 hour. -mild AST/ALT elevation, recheck in a.m. -General Surgery consulted - Possible mild ischemic colitis from hypoperfusion in the setting of dehydration with noted hemoglobin of 16 and protein of 8.9. Patient's abdominal exam is very benign and will continue with conservative therapy. Continue with IV fluids. Plan to advance to clears for today. Status: Acute Plan Monitor and manage chronic medical comorbidities with home medications. CODE: Full as discussed with patient and daughter VTE PPX: SCDs, no chemical prophylaxis in setting of acute bleed Disposition: Inpatient
--- NOTE | 2023-03-20 11:24 | P.GSCN_ITS ---
History of Present Illness Consult details Date Seen: 03/20/23 Consult date: 03/20/23 Narrative: 82-year-old female was admitted to the hospital with abdominal pain and 1 episode of bloody stool, and I was asked by Dr. Serrano to see her in consultation. Patient states that she all of a sudden woke up in the middle of the night and was sweaty. She felt like she needed to vomit and went to the bathroom. She also thought she needed to have a bowel movement. She had a loose bowel movement and noticed some blood when she wiped. She possibly passed out because she leans her had to the wall. She was brought to the emergency room. Patient states that she did have abdominal pain in the lower abdomen. She currently has similar pain that is still in the lower abdomen. She denies any nausea now. She is passing gas. Patient had no prior similar episodes. Her last colonoscopy was approximately 5 years ago and she is scheduled for colonoscopy at the end of March. In the emergency room she was found to have hemoglobin of 16.1 and lactate of 2.2. Her AST and ALT were mildly elevated. Her WBC was normal. Her protein was also elevated at 8.9. An abdominal CT was obtained that showed mild thickening of colonic wall in the transverse colon and proximal descending concerning for colitis. The wall of this segment of the colon was hypoattenuated suggestive of possible ischemic colitis. Review of Systems Narrative: General: no fevers HENT: no problems swallowing CV: no shortness of breath Resp: no cough GI: No nausea, vomiting, abdominal pain : no dysuria, no increased urinary frequency, no hematuria Skin: no new rashes Musculoskeletal: no back pain Neuro: no muscle weakness Psyche: no depression, no anxiety PFSH PFSH Medical History (Updated 03/20/23 @ 11:29 by Yehuda Connelly MD) Osteoporosis ?M81.0 - Age-related osteoporosis without current pathological fracture (ICD- 10) Hyperlipidemia ?E78.5 - Hyperlipidemia, unspecified (ICD-10) Surgical History (Updated 03/20/23 @ 11:29 by Yehuda Connelly MD) History of hand surgery ?Z98.890 - Other specified postprocedural states (ICD-10) H/O breast biopsy ?Z98.890 - Other specified postprocedural states (ICD-10) Tubal ligation status ?Z98.51 - Tubal ligation status (ICD-10) Social History Smoking Status: Never smoker Do you use any of these nicotine containing products: None Second hand tobacco smoke exposure: No How often do you have a drink containing alcohol: never AUDIT-C Alcohol total score: 0 Non-prescribed substance use: denies use service: No Meds Home Medications and Allergies Home Medications Medication Instructions Recorded Confirmed Type cetirizine 10 mg capsule (All Day 10 mg PO DAILY 12/26/22 03/20/23 History Allergy (cetirizine)) alendronate 70 mg tablet 70 mg PO QWEEK 03/20/23 03/20/23 History atorvastatin 20 mg tablet 20 mg PO QPM 03/20/23 03/20/23 History biotin 2,500 mcg chewable tablet 2,500 mcg PO DAILY 03/20/23 03/20/23 History diphenhydramine HCl 25 mg capsule 25 mg PO HS PRN 03/20/23 03/20/23 History (Allergy Medication) Allergies Allergy/AdvReac Type Severity Reaction Status Date / Time No Known Drug Allergies Allergy Verified 03/20/23 05:28 Exam Narrative: Exam Narrative: General appearance: Alert, cooperative, and in no distress Pulmonary: Chest symmetric, lungs clear bilaterally Cardiovascular Heart: Regular rate and rhythm, S1, S2, no murmurs/rubs/gallops Gastrointestinal Abdominal: soft, not distended, not tender to percussion, minimal discomfort to palpation in left upper quadrant but no where else. No peritoneal signs. Skin: Normal skin color, texture, and turgor. No rashes or lesions. Psychiatric: Alert, cooperative, normal affect. Const: Vital Signs, click to edit/add: Vital Signs - 24 hr 03/20/23 03:47 03/20/23 03:57 03/20/23 04:02 Temperature 97.4 F L Pulse Rate Pulse Rate [Pulse Oximeter] 81 Respiratory Rate 16 16 Blood Pressure 140/81 H 140/77 H Blood Pressure [Ri ght Upper Arm] 147/85 H Pulse Oximetry 95 Oxygen Delivery Me thod Room Air 03/20/23 04:03 03/20/23 04:15 03/20/23 04:33 Temperature Pulse Rate 81 81 Pulse Rate [Pulse Oximeter] Respiratory Rate Blood Pressure 112/92 H Blood Pressure [Ri ght Upper Arm] Pulse Oximetry 95 96 Oxygen Delivery Me thod 03/20/23 04:35 03/20/23 04:45 03/20/23 05:12 Temperature Pulse Rate 81 86 91 Pulse Rate [Pulse Oximeter] Respiratory Rate Blood Pressure Blood Pressure [Ri ght Upper Arm] Pulse Oximetry 95 90 97 Oxygen Delivery Me thod 03/20/23 05:13 03/20/23 05:14 03/20/23 05:15 Temperature Pulse Rate 91 88 87 Pulse Rate [Pulse Oximeter] Respiratory Rate Blood Pressure Blood Pressure [Ri ght Upper Arm] Pulse Oximetry 98 96 97 Oxygen Delivery Me thod 03/20/23 05:30 03/20/23 05:32 03/20/23 05:45 Temperature Pulse Rate 89 91 91 Pulse Rate [Pulse Oximeter] Respiratory Rate Blood Pressure 167/89 H Blood Pressure [Ri ght Upper Arm] Pulse Oximetry 97 96 92 Oxygen Delivery Me thod 03/20/23 06:00 03/20/23 06:02 03/20/23 06:15 Temperature Pulse Rate 88 88 90 Pulse Rate [Pulse Oximeter] Respiratory Rate Blood Pressure 162/87 H Blood Pressure [Ri ght Upper Arm] Pulse Oximetry 94 94 97 Oxygen Delivery Me thod 03/20/23 06:30 03/20/23 06:32 03/20/23 06:45 Temperature Pulse Rate 84 84 98 Pulse Rate [Pulse Oximeter] Respiratory Rate Blood Pressure 164/87 H Blood Pressure [Ri ght Upper Arm] Pulse Oximetry 96 96 94 Oxygen Delivery Me thod 03/20/23 07:00 03/20/23 07:01 03/20/23 07:11 Temperature 98.6 F Pulse Rate 88 84 Pulse Rate [Pulse Oximeter] 90 Respiratory Rate 22 Blood Pressure 169/94 H Blood Pressure [Ri ght Upper Arm] Pulse Oximetry 95 96 95 Oxygen Delivery Me thod Room Air 03/20/23 07:15 03/20/23 07:30 03/20/23 07:32 Temperature Pulse Rate 90 87 90 Pulse Rate [Pulse Oximeter] Respiratory Rate Blood Pressure 161/89 H Blood Pressure [Ri ght Upper Arm] Pulse Oximetry 96 95 96 Oxygen Delivery Me thod 03/20/23 07:45 03/20/23 08:25 03/20/23 08:25 Temperature Pulse Rate 92 71 Pulse Rate [Pulse Oximeter] Respiratory Rate Blood Pressure Blood Pressure [Ri ght Upper Arm] Pulse Oximetry 97 94 Oxygen Delivery Me thod Room Air Results Labs Labs: Abnormal lab results 03/20/23 03/20/23 03/20/23 Range/Units 04:25 06:30 09:36 RBC 5.42 H (4.00-5.20) m/uL Hgb 16.1 H (12.0-16.0) gm/dL Neut % (Auto) 87.2 H (42.0-72.0) % Lymph % (Auto) 6.0 L (20-44) % Neut # (Auto) 8.90 H (1.7-7.0) K/uL Lymph # (Auto) 0.60 L (0.90-2.90) K/uL Glucose 140 H (60-115) mg/dL Lactate 2.2 H 3.1 H (0.5-1.9) mmol/L AST 49 H (12-35) U/L ALT 36 H (4-35) U/L Total Protein 8.7 H (6.0-8.3) g/dL Urine Appearance Cloudy A (Clear) Urine Protein 1+ A (Negative) Urine Blood 3+ A (Negative) Ur Leukocyte Esterase 1+ A (Negative) Urine RBC >100 A (0-2) Urine WBC 5-10 A (0-5) Urine Bacteria Few A (None) Diabetes panel 03/20/23 Range/Units 04:25 Sodium 140 (135-149) mmol/L Potassium 4.4 (3.6-5.1) mmol/L Chloride 104 (96-114) mmol/L Carbon Dioxide 23 (20-32) mmol/L BUN 23 (7-30) mg/dL Creatinine 0.8 (0.5-1.5) mg/dL Glucose 140 H (60-115) mg/dL Calcium 10.1 (8.4-10.6) mg/dL AST 49 H (12-35) U/L ALT 36 H (4-35) U/L Alkaline Phosphatase 74 (40-150) U/L Total Protein 8.7 H (6.0-8.3) g/dL Albumin 4.9 (3.3-5.0) g/dL Calcium panel 03/20/23 03/20/23 Range/Units 04:25 09:36 Calcium 10.1 (8.4-10.6) mg/dL Phosphorus 3.7 (2.5-4.5) mg/dL Albumin 4.9 (3.3-5.0) g/dL Pituitary panel 03/20/23 Range/Units 04:25 Sodium 140 (135-149) mmol/L Potassium 4.4 (3.6-5.1) mmol/L Chloride 104 (96-114) mmol/L Carbon Dioxide 23 (20-32) mmol/L BUN 23 (7-30) mg/dL Creatinine 0.8 (0.5-1.5) mg/dL Glucose 140 H (60-115) mg/dL Calcium 10.1 (8.4-10.6) mg/dL Adrenal panel 03/20/23 Range/Units 04:25 Sodium 140 (135-149) mmol/L Potassium 4.4 (3.6-5.1) mmol/L Chloride 104 (96-114) mmol/L Carbon Dioxide 23 (20-32) mmol/L BUN 23 (7-30) mg/dL Creatinine 0.8 (0.5-1.5) mg/dL Glucose 140 H (60-115) mg/dL Calcium 10.1 (8.4-10.6) mg/dL Total Bilirubin 0.7 (0.1-1.5) mg/dL AST 49 H (12-35) U/L ALT 36 H (4-35) U/L Alkaline Phosphatase 74 (40-150) U/L Total Protein 8.7 H (6.0-8.3) g/dL Albumin 4.9 (3.3-5.0) g/dL All other labs normal. Assessment and Plan Assessment and plan (1) Colitis: Status: Acute Plan 82-year-old female admitted to the hospital with 1 episode of loose bloody stools and findings of transverse and descending colitis. I discussed with the patient and her family her CT findings and her laboratory f indings. I think this patient was dehydrated given her hemoglobin of 16 and her protein of 8.9. She could have had mild ischemic colitis from hypoperfusion in the setting of dehydration. Patient's abdominal exam is very benign and will continue with conservative therapy. we will continue with IV fluids. Patient can advance to clears for today.
[2023-03-20] MEDS: LACTATED RINGERS 500 ML 250 ML IV (11:28)
[2023-03-20 13:17] LABS: Lactate* 3.3 mmol/L (0.5-1.9)
--- NOTE | 2023-03-20 13:51 | PC.NURSE ---
PATIENT HAS HAD 300 ML URINARY OUTPUT WITH STAFF SINCE TRANSFERRING TO MED/SURG UNIT THOUGH HAS ALSO BEEN TOILETING WITH DAUGHTER PER FAMILY/PATIENT REQUEST. SHE HAD 100% OF CHICKEN BROTH FOR LUNCH PER CLEAR LIQUID DIET. 550 ML FLUID INTAKE PO SINCE BEING TRANSFERRED FROM ED WITH STAFF ENCOURAGING FLUIDS. VITALS ASSESSED AFTER 1100: B/P 162/77, P 89, R 16, T 97.7, O2 SAT 97% ON RA. PATIENT C/O 6/10 UPPER AND LEFT ABDOMINAL PAIN BEFORE LUNCH AND WAS GIVEN 2 MG IV MORPHINE SULFATE WHICH WAS EFFECTIVE PATIENT RATED PAIN 0/10 UPON FOLLOWUP. PATIENT'S DAUGHTER HAS BEEN PRESENT AT BESIDE SINCE BEING TRANSFERRED FROM ED. LACTATED RINGERS SOLUTION RUNNING CONTINUES AT 100 ML/HR IV AFTER GIVING ORDERED BOLUS DOSE. STAFF TO COLLECT STOOL SAMPLE WHEN POSSIBLE PER ORDER IN PLACE. PATIENT SLEEPING IN RECLINER AT THIS TIME- PATIENT'S DAUGHTER REPORTS NARCOTIC MEDICATION DOES MAKE RESIDENT SLEEPY. PROSTHETICS ASSISTANT OFFERED TO ASSIST PATIENT INTO BED THOUGH PATIENT REPORTED, I'M MORE COMFORTABLE IN THE CHAIR REFERRING TO THE RECLINER.
[2023-03-20] MEDS: 0.9 % SODIUM CHLORIDE 1000 ml 1,000 ML 75 ML IV (14:27)
[2023-03-20] MEDS: cefTRIAXone 1 GM VIAL IVPB (14:28)
[2023-03-20] MEDS: ACETAMINOPHEN 325 MG TABLET PO (14:48)
--- NOTE | 2023-03-20 15:16 | PC.NURSE ---
Daughter remains present at bedside- Patient toileted with staff this afternoon and was noted to have unmeasurable amount of dark red blood on the floor near toilet. Daughter also reported noting blood in brief. It is unclear if blood was vaginal or rectal though LEILA Jones was updated regarding blood and came into room to visualize blood present on floor. PRN Tylenol given at 1448 this afternoon due to patient c/o headache. She denied dizziness when ambulating to bathroom. Staff awaiting stool sample as resident's last BM was before admission to ED overnight.
[2023-03-20 15:59] LABS: Hemoglobin* 14.6 gm/dL (12.0-16.0)
[2023-03-20] MEDS: ATORVASTATIN 10 MG TABLET 20 MG PO (18:41)
--- NOTE | 2023-03-20 19:31 | PC.NURSE ---
Patient up to floor at 0800. Accompanied by dtr. Mathias. Patient is alert and oriented x4. Denies N/V/SOB or pain. Patient is pleasant and cooperative. NPO this AM for possible surgery but after examination, patient advanced to clears and tolerating well. Patient up to BR SBA and had a few bloody briefs. Patient had significant blood on floor when attempting to sit on toilet. LEILA Hummel updated and will continued to monitor. Tele-NSR, continuous pulse ox, Patient is 98% on RA, IV patent and NS running. Patient encouraged to ambulate in hallway and tolerated activity well. VSS.
[2023-03-21] VITALS (9 sets, daily range): BP systolic 136–159; BP diastolic 71–84; PULSE 80–96; RESP 16–18; TEMP 36.4–36.7; O2SAT 93–96
[2023-03-21] MEDS: ACETAMINOPHEN 325 MG TABLET PO ×2 (00:48→07:47)
[2023-03-21] MEDS: 0.9 % SODIUM CHLORIDE 1000 ml 1,000 ML 75 ML IV (03:04)
--- NOTE | 2023-03-21 05:09 | PC.NURSE ---
[id number] Pt slept well during night, no need for prn iv pain medicaitons, took prn tylenol x1 for headache with relief. ambulating to br with SBA, denies lightheaded and dizziness. bright red blood when going to the br, no stool noted in with blood.
[2023-03-21 06:25] LABS: Hemoglobin* 14.1 gm/dL (12.0-16.0); Mean Corpuscular HGB Conc 33 gm/dL (32-36); Mean Corpuscular Hemoglobin 30 pg (26-34); Mean Corpuscular Volume 90 fL (80-100); Platelet Count* 152 K/uL (140-440); Red Blood Count 4.76 m/uL (4.00-5.20); White Blood Count* 12.42 K/uL (4.50-11.00)
[2023-03-21 06:26] LABS: Slide Review Reflex No
[2023-03-21 06:43] LABS: Albumin* 3.7 g/dL (3.3-5.0); Chloride* 104 mmol/L (96-114); Potassium* 3.9 mmol/L (3.6-5.1); Sodium* 137 mmol/L (135-149)
[2023-03-21 06:46] LABS: Alanine Aminotransferase* 33 U/L (4-35); Alkaline Phosphatase* 63 U/L (40-150); Anion Gap 9 mEq/L (7-15); Aspartate Amino Transferase* 36 U/L (12-35); Blood Urea Nitrogen* 8 mg/dL (7-30); Calcium* 8.8 mg/dL (8.4-10.6); Carbon Dioxide* 24 mmol/L (20-32); Creatinine* 0.6 mg/dL (0.5-1.5); Est. Creatinine Clearance* 38.75; Estimated Glomerular Filt Rate 91 ml/min; Glucose* 131 mg/dL (60-115); Total Protein* 6.8 g/dL (6.0-8.3)
--- NOTE | 2023-03-21 08:13 | PM.GSPN ---
Subjective Subjective Date Seen: 03/21/23 Interval history: Patient is stable. Her abdominal pain is only present when she is sitting up. She denies pain when she is moving or walking around. She tolerated clears yesterday. She had to bowel movements today with dark blood in the bowel movement. The second bowel movement was very small. Exam Narrative: Exam Narrative: Abdomen is soft, not distended, not tender to percussion, barely any discomfort to palpation in the left mid abdomen. Slightly improved from yesterday. Const: Vital Signs, click to edit/add: Vital Signs - 24 hr 03/20/23 08:25 03/20/23 08:25 03/20/23 08:25 Temperature 98.4 F Pulse Rate 71 Pulse Rate [Right Pulse Oximeter] 83 Respiratory Rate 18 Blood Pressure [Le ft Arm] Blood Pressure [Ri ght Arm] 152/83 H Pulse Oximetry 94 94 Oxygen Delivery Me thod Room Air Room Air 03/20/23 08:27 03/20/23 11:44 03/20/23 15:00 Temperature 97.7 F Pulse Rate 90 Pulse Rate [Right Pulse Oximeter] 89 Respiratory Rate 16 Blood Pressure [Le ft Arm] Blood Pressure [Ri ght Arm] 162/77 H Pulse Oximetry 94 97 Oxygen Delivery Me thod Room Air 03/20/23 15:00 03/20/23 15:00 03/20/23 19:00 Temperature 98.5 F 98.2 F Pulse Rate Pulse Rate [Right Pulse Oximeter] 94 94 90 Respiratory Rate 18 18 18 Blood Pressure [Le ft Arm] 152/74 H Blood Pressure [Ri ght Arm] 149/71 H Pulse Oximetry 98 99 Oxygen Delivery Me thod Room Air Room Air 03/20/23 23:00 03/20/23 23:00 03/21/23 03:00 Temperature Pulse Rate 87 Pulse Rate [Right Pulse Oximeter] 88 95 Respiratory Rate 18 18 Blood Pressure [Le ft Arm] 157/87 H 136/75 Blood Pressure [Ri ght Arm] Pulse Oximetry 96 95 Oxygen Delivery Me thod Room Air Room Air 03/21/23 07:33 Temperature 98.1 F Pulse Rate Pulse Rate [Right Pulse Oximeter] 87 Respiratory Rate 16 Blood Pressure [Le ft Arm] 159/84 H Blood Pressure [Ri ght Arm] Pulse Oximetry 93 Oxygen Delivery Me thod Room Air Progress Note: A&P Assessment and plan (1) Colitis: Problem details: -CT shows infectious/inflammatory versus ischemic colitis. Large diverticulum without evidence of diverticulitis. -lactate trending up. No leukocytosis. Afebrile. Remains vitally stable. -continue LR with bolus and repeat lactate -NPO -pain and nausea management as needed. Pulse ox monitoring. -IV PPI b.i.d. -GI pathogen/stool culture ordered -hemoglobin on admission 16.1, repeat 15. Recheck a 4 hour. -mild AST/ALT elevation, recheck in a.m. -General Surgery consulted - Possible mild ischemic colitis from hypoperfusion in the setting of dehydration with noted hemoglobin of 16 and protein of 8.9. Patient's abdominal exam is very benign and will continue with conservative therapy. Continue with IV fluids. Plan to advance to clears for today. Status: Acute Plan 82-year-old female admitted to the hospital with colitis and bloody stools. Patient is vital is stable. Her hemoglobin is 14 today. She tolerated clears well. Her abdominal exam continues to be very benign. Her lactate was 3 yesterday. Lactate today down to 2.3. Given patient's benign clinical exam, I think it would be reasonable to advance her diet and if patient continues to be stable, discharge home. Patient should keep her colonoscopy appointment at the end of March.
[2023-03-21 08:35] LABS: Lactate* 2.3 mmol/L (0.5-1.9)
[2023-03-21] MEDS: PANTOPRAZOLE SODIUM 40 MG INJ IVP (08:50)
[2023-03-21] MEDS: SODIUM CHLORIDE 0.9 % (FLUSH) 10 ML SYRINGE 5 ML IVF ×2 (08:50→21:00)
--- NOTE | 2023-03-21 12:55 | NUTR.NU ---
RDN with MD consult for Ischemic colitis. Patient and patient's family were provided diet education on a low fiber diet. Discussed foods to include and foods to avoid until MD recommends advancing fiber in the diet. Encouraged patient to take diet advancement slowly. Education also provided on gradually increasing fiber (25-35 grams/day). Verbal and written information as well as sample menus provided on both diets from AND [facility].? Patient and family verbalized understanding.? RDN's contact information was provided and patient was encouraged to contact RDN with questions.
--- NOTE | 2023-03-21 13:42 | PM.IMPN1 ---
Progress Note: A&P Assessment and plan (1) Colitis: Problem details: -CT shows infectious/inflammatory versus ischemic colitis. Large diverticulum without evidence of diverticulitis. -lactate trending down now. No leukocytosis. Afebrile. Remains vitally stable. -continue LR with bolus and repeat lactate -tolerating soft diet, and will advance as tolerated -pain and nausea management as needed. -change PPI from IV to oral -GI pathogen/stool culture ordered -hemoglobin on admission 16.1, more recently 14. -mild AST/ALT elevation -General Surgery consulted Status: Acute (2) Bright red blood per rectum: Problem details: Due to acute colitis, again most likely ischemic Status: Acute Plan 1. Reviewed impression with patient and her daughter, Mey, and her son, Valerio. Answered their questions. 2. Given that patient continues to have intermittent episodes of bright red blood per rectum, slowly down trending hemoglobin, and she is not confident about going home at this time, recommend that we continue to keep her in the hospital, continue IV fluids as presently instituted, continue to monitor hemoglobin as well as lactate. 3. Will change proton pump inhibitor from IV to oral. 4. Continue to monitor hemodynamic status including orthostatic blood pressures and pulses. 5. Patient and family are agreeable. Time Spent With Patient Total time spent: 45 minutes Subjective Time Seen by Provider: 13:30 Date Seen: 03/21/23 Interval history: Hospital day 2. History of present illness: Umu Zacarias is a 82 year old female past medical history significant for recent Lyme disease (December 2022) treated with antibiotics, osteoporosis, hyperlipidemia is admitted to the medical floor from the ED for further management suspected ischemic colitis. Patient reports feeling well yesterday without recent illness. Awoke in the middle the night, diaphoretic, with cramping lower abdominal pain. Went to the bathroom where she had a large bowel movement and apparently a syncopal episode wherein she woke with her head leaning against the bathroom wall while sitting on the toilet. Denies falling to the floor. While wiping, noticed blood however did not look at the stool in the toilet. Has since felt more weak with continued lower abdominal pain. Had an episode of nausea without vomiting which has since resolved. In the ED, rectal exam showed maroon stool. CT showing infectious/inflammatory colitis versus ischemic colitis. Mildly elevated lactate noted. Hemoglobin 16.1. Patient remained vitally stable without hypotension, tachycardia, tachypnea. Currently, patient denies headache. Admits to chronic intermittent dizziness since Lyme disease diagnosis. Denies recent fevers or chills. Denies chest pain or shortness of breath. No recent cough or congestion. Continues to have lower abdominal pain. No further nausea. Denies recent travel outside of the state. No known infectious contacts. No recent antibiotic use. Nonsmoker. Denies alcohol use. Generally speaking she feels better today than she did yesterday. Denies orthostasis, syncope, near syncope. Concerned about still passing bright red blood per rectum intermittently, much smaller volumes and previously. No longer having diaphoresis, lightheadedness, or dizziness such as she had when this 1st occurred while she was at home. Minimal abdominal discomfort, much less so than previously. Tolerating activities, walking about her room. Does not have her usual appetite. She ate small quantities of her meals today. Tolerated this. No nausea or vomiting. Exam Narrative: Exam Narrative: Examine the patient in her hospital room. Appears comfortable and in no acute distress. Eating and drinking without any difficulties. Vision and hearing are grossly normal. Alert and oriented to self, place, time, situation. Friendly, articulate, cooperative. Mood and affect are congruent. Appropriately anxious. Lungs are clear to auscultation. Heart tones with regular rhythm. Abdomen with active bowel sounds, soft, nontender. No rebound or guarding. No organomegaly masses. Extremities without edema. Independent transfer, station, and gait. No tremor, asterixis, or ataxia. No petechiae, jaundice, icterus, rashes. Const: Vital Signs, click to edit/add: Vital Signs - 24 hr 03/20/23 15:00 03/20/23 15:00 03/20/23 15:00 Temperature 98.5 F Pulse Rate 90 Pulse Rate [Right Pulse Oximeter] 94 94 Respiratory Rate 18 18 Blood Pressure [Le ft Arm] Blood Pressure [Ri ght Arm] 149/71 H Pulse Oximetry 98 Oxygen Delivery Me thod Room Air 03/20/23 19:00 03/20/23 23:00 03/20/23 23:00 Temperature 98.2 F Pulse Rate 87 Pulse Rate [Right Pulse Oximeter] 90 88 Respiratory Rate 18 18 Blood Pressure [Le ft Arm] 152/74 H 157/87 H Blood Pressure [Ri ght Arm] Pulse Oximetry 99 96 Oxygen Delivery Me thod Room Air Room Air 03/21/23 03:00 03/21/23 07:30 03/21/23 07:30 Temperature Pulse Rate 88 Pulse Rate [Right Pulse Oximeter] 95 Respiratory Rate 18 Blood Pressure [Le ft Arm] 136/75 Blood Pressure [Ri ght Arm] Pulse Oximetry 95 96 Oxygen Delivery Me thod Room Air 03/21/23 07:33 03/21/23 12:03 Temperature 98.1 F 98.0 F Pulse Rate Pulse Rate [Right Pulse Oximeter] 87 89 Respiratory Rate 16 18 Blood Pressure [Le ft Arm] 159/84 H 155/75 H Blood Pressure [Ri ght Arm] Pulse Oximetry 93 96 Oxygen Delivery Me thod Room Air Room Air Documenting provider has reviewed patient's vital signs: yes Labs Labs: Laboratory Results - last 24 hr 03/20/23 03/21/23 03/21/23 15:53 06:15 08:31 WBC 12.42 H RBC 4.76 Hgb 14.6 14.1 Hct 43.0 MCV 90 MCH 30 MCHC 33 Plt Count 152 Sodium 137 Potassium 3.9 Chloride 104 Carbon Dioxide 24 Anion Gap 9 BUN 8 Creatinine 0.6 Estimated Creat Clear 38.75 Estimated GFR 91 Glucose 131 H Lactate 2.3 H Calcium 8.8 Total Bilirubin 1.0 Direct Bilirubin 0.0 AST 36 H ALT 33 Alkaline Phosphatase 63 Total Protein 6.8 Albumin 3.7
[2023-03-21 14:15] LABS: Lactate* 1.2 mmol/L (0.5-1.9)
[2023-03-21] MEDS: cefTRIAXone 1 GM VIAL IVPB (14:15)
[2023-03-21 14:18] LABS: Hemoglobin* 13.7 gm/dL (12.0-16.0)
--- NOTE | 2023-03-21 18:00 | PC.NURSE ---
End of Shift: A&Ox4, VSS on RA. Patients family has been visiting throughout the day. SBA up to the BR. Voiding well, multiple bloody stools today. Stool sample was collected and sent. Reported a mild headache this AM adequate relief with PRN Tylenol. No other reports of pain throughout the day. Tele in NSR. IV fluids Dc'd per orders. Nutrition was consulted today and met with the patient and she was educated regarding a balanced diet for colitis. Calls appropriately, receives IV ABX q24. Advanced to a regular diet today, with no nausea or vomiting.
[2023-03-21] MEDS: ATORVASTATIN 10 MG TABLET 20 MG PO (19:47)
[2023-03-21 20:07] LABS: Hemoglobin* 14.2 gm/dL (12.0-16.0)
[2023-03-21] MEDS: OMEPRAZOLE 20 MG CAPSULE DR PO (21:00)
[2023-03-22 02:45] VITALS: PULSE 76; RESP 16; O2SAT 92
--- NOTE | 2023-03-22 04:36 | PC.NURSE ---
[id number] Pt ind in room, slept majority of night. Some blood noted in stools, decreasing in amount. No pain this shift, pt denies N/V lightheaded or dizziness, chestpain or headache.
[2023-03-22 06:00] VITALS: BP 134/74; BP 142/79; BP 145/90; PULSE 105; PULSE 86; PULSE 89
[2023-03-22] MEDS: OMEPRAZOLE 20 MG CAPSULE DR PO (06:20)
[2023-03-22 06:50] LABS: Hemoglobin* 13.6 gm/dL (12.0-16.0)
[2023-03-22 07:00] VITALS: BP 129/73; PULSE 86; RESP 16; TEMP 36.8; O2SAT 93
--- NOTE | 2023-03-22 10:29 | PC.NURSE ---
Patient alert and oriented x4, pleasant and cooperative. VSS, denies N/V/SOB or pain. slight abdominal discomfort after consuming breakfast but patient stated it was tolerable. Patient discharged today accompanied by dtr. IV removed intact. Patient signed discharge instructions and belongings sheet. Patient verbalized understanding of discharge instructions given.
--- NOTE | 2023-03-22 15:42 | P.DS_ITS ---
DS: Providers Provider Time Seen by Provider: 09:00 Date Seen: 03/22/23 Date of admission: 03/20/23 08:00 Primary care physician: Marni Contreras MD Admitting Clinician: Joyce Serrano MD Consults: 03/21/23 09:07 Consult to Nutrition [CONS] Routine Comment: Reason for consult:: Miscellaneous Comment: ischemic colitis: transitional diet Attending Physician on discharge: Chucho Conteh MD Date of Discharge: 03/22/23 DS: Diagnosis Discharge Diagnosis (1) Colitis: Status: Acute Problem details: -CT shows infectious/inflammatory versus ischemic colitis. Large diverticulum without evidence of diverticulitis. -lactate trending down now. No leukocytosis. Afebrile. Remains vitally stable. -continue LR with bolus and repeat lactate -tolerating soft diet, and will advance as tolerated -pain and nausea management as needed. -change PPI from IV to oral -GI pathogen/stool culture ordered -hemoglobin on admission 16.1, more recently 14. -mild AST/ALT elevation -General Surgery consulted (2) Acute ischemic colitis: Status: Acute (3) Bright red blood per rectum: Status: Acute Problem details: Due to acute colitis, again most likely ischemic DS: Summary Hospital Course Hospital Course: History of present illness: Umu Zacarias is a 82 year old female past medical history significant for recent Lyme disease (December 2022) treated with antibiotics, osteoporosis, hyperlipidemia is admitted to the medical floor from the ED for further management suspected ischemic colitis. Patient reports feeling well yesterday without recent illness. Awoke in the middle the night, diaphoretic, with cramping lower abdominal pain. Went to the bathroom where she had a large bowel movement and apparently a syncopal episode wherein she woke with her head leaning against the bathroom wall while sitting on the toilet. Denies falling to the floor. While wiping, noticed blood however did not look at the stool in the toilet. Has since felt more weak with continued lower abdominal pain. Had an episode of nausea without vomiting which has since resolved. In the ED, rectal exam showed maroon stool. CT showing infectious/inflammatory colitis versus ischemic colitis. Mildly elevated lactate noted. Hemoglobin 16.1. Patient remained vitally stable without hypotension, tachycardia, tachypnea. In-hospital patient responded well to conservative measures. Treated with IV fluids. Initially NPO and then diet gradually advanced. Required intermittent analgesics. Continued to have intermittent episodes of small amount of bright red blood per rectum. The frequency of these episodes declined significantly throughout her short hospital stay. Lactate initially elevated and eventually normalized. Initial hemoglobin in a partially dehydrated state was elevated at 16.1. IV fluids, time, and decreased frequency of bleeding, hemoglobin stabilized at 13.1. Patient did not receive transfusion of any blood products. Tolerated increased activity. Tolerating increased diet. Had no orthostasis last 2 days in the hospital. Status at Discharge Functional status at discharge: independent ambulation Overall status at discharge: patient is progressing back to baseline Time Spent with Patient Time attestation: Total time spent providing and/or coordinating discharge services: Time spent: Greater than 30 minutes Exam Narrative: Exam Narrative: Examine the patient in her hospital room. Appears comfortable and in no acute distress. Eating and drinking without any difficulties. Vision and hearing are grossly normal. Alert and oriented to self, place, time, situation. Friendly, articulate, cooperative. Mood and affect are congruent. Appropriately anxious. Lungs are clear to auscultation. Heart tones with regular rhythm. Abdomen with active bowel sounds, soft, nontender. No rebound or guarding. No organomegaly masses. Extremities without edema. Independent transfer, station, and gait. No tremor, asterixis, or ataxia. No petechiae, jaundice, icterus, rashes. Const: Vital Signs, click to edit/add: Vital Signs - 24 hr 03/21/23 19:00 03/21/23 22:02 03/21/23 23:00 Temperature 98.1 F 97.9 F Pulse Rate 90 Pulse Rate [Right Pulse Oximeter] 96 88 Pulse Rate [orthos tatic lying Left P ulse Oximeter] Pulse Rate [orthos tatic sitting Left Pulse Oximeter] Pulse Rate [orthos tatic standing Lef t Pulse Oximeter] Respiratory Rate 16 16 Blood Pressure [Le ft Arm] 155/71 H Blood Pressure [or thostatic lying Le ft Arm] Blood Pressure [or thostatic sitting Left Arm] Blood Pressure [or thostatic standing Left Arm] Pulse Oximetry 93 96 Oxygen Delivery Me thod Room Air Room Air 03/22/23 02:45 03/22/23 06:00 03/22/23 07:00 Temperature Pulse Rate Pulse Rate [Right Pulse Oximeter] 76 86 Pulse Rate [orthos tatic lying Left P ulse Oximeter] 89 Pulse Rate [orthos tatic sitting Left Pulse Oximeter] 86 Pulse Rate [orthos tatic standing Lef t Pulse Oximeter] 105 H Respiratory Rate 16 16 Blood Pressure [Le ft Arm] Blood Pressure [or thostatic lying Le ft Arm] 134/74 Blood Pressure [or thostatic sitting Left Arm] 142/79 H Blood Pressure [or thostatic standing Left Arm] 145/90 H Pulse Oximetry 92 Oxygen Delivery Me thod Room Air 03/22/23 07:00 Temperature 98.3 F Pulse Rate Pulse Rate [Right Pulse Oximeter] 86 Pulse Rate [orthos tatic lying Left P ulse Oximeter] Pulse Rate [orthos tatic sitting Left Pulse Oximeter] Pulse Rate [orthos tatic standing Lef t Pulse Oximeter] Respiratory Rate 16 Blood Pressure [Le ft Arm] 129/73 Blood Pressure [or thostatic lying Le ft Arm] Blood Pressure [or thostatic sitting Left Arm] Blood Pressure [or thostatic standing Left Arm] Pulse Oximetry 93 Oxygen Delivery Me thod Room Air Documenting provider has reviewed patient's vital signs: yes DS: Data Data Completed and Pending Labs on day of discharge: Labs from last 24 hours 03/22/23 03/21/23 06:28 19:56 Hgb 13.6 14.2 Preliminary micro results at discharge 03/20/23 Unknown Urine Culture - Preliminary Urine,Clean Catch Gram negative escobar Gram negative escobar#[address] scan - abdomen: Attestation: I have reviewed the pertinent imaging results. Radiologist's impression: 03/20/2023 IMPRESSION: Colonic wall thickening and mild inflammation predominately involving the transverse colon and proximal descending colon. There is relative hypoenhancement of the colonic wall near the splenic flexure. Findings may indicate infectious/inflammatory colitis although ischemic colitis cannot be excluded given hypoenhancement and at the splenic flexure. However, there is no evidence of portal venous gas or pneumatosis. Recommend correlation with lactic acid. Patent portal vein. Patent mesenteric arteries. The sigmoid colon is decompressed with an outpouching measuring 2.6 x 2.5 cm likely representing a large diverticulum. No evidence of diverticulitis. A contained perforation is felt less likely. Evaluation for active GI bleed and ischemic colitis is limited on this single phase study. Discharge Plan Discharge Disposition: Home, Self-Care Date of Admission: 03/20/23 08:00 Attending Provider on Discharge: Chucho Coneth Primary Care Provider: Marni Contreras Condition: Improved Anticipated Discharge Date/Time: 03/22/23 10:00 Discharge Medications: New Lactobacillus acidophilus 0.5 mg (100 million cell) Tablet 1 mg PO TIDWM 30 Days Qty: 60 0RF Continued atorvastatin 20 mg tablet 20 mg PO QPM alendronate 70 mg tablet 70 mg PO QWEEK biotin 2,500 mcg tablet,chewable 2,500 mcg PO DAILY diphenhydramine HCl [Allergy Medication] 25 mg capsule 25 mg PO HS PRN All Day Allergy (cetirizine) 10 mg capsule 10 mg PO DAILY Discharge Orders: Discharge Order (Routine); Ordered 03/22/23 Ordered By: Chucho Conteh Patient Education: Lactulose (By mouth) (Edwardostuloz, Enuloz, Generlac, Kristaosorio, Tamika), Gastrointestinal Bleeding (DC), Low Fiber Diet (DC), GERD (Gastroesophageal Reflux Disease) (DC) Activity Level: No Restrictions and Activity as Tolerated Discharge Diet: Regular and Low Fiber Diet Detail: Low fiber (low residue) diet for 5-10 days, transitioning to regular diet. Follow Up Appointments: Marni Contreras MD [Primary Care Provider] - 03/26/23 10:45 am (Pre-visit CBC, please arrive 10 minutes early.) [facility]
[2023-03-24 08:07] LABS: Adenovirus PCR Not Detected; Astrovirus PCR Not Detected; Campylobacter PCR Not Detected; Cryptosporidium PCR Not Detected; Cyclospora cayetanensis PCR Not Detected; Entamoeba histolytica PCR Not Detected; Enteroaggregative E coli PCR Not Detected; Enteropathogenic E coli PCR Detected; Enterotoxigenic E coli PCR Not Detected; Giardia lamblia PCR Not Detected; Norovirus Gi/GII PCR Not Detected; Plesiomonas shig PCR Not Detected; Rotavirus A PCR Not Detected; Salmonella PCR Not Detected; Sapovirus PCR Not Detected; Shiga toxin E coli PCR Not Detected; Shigella/Enteroinvasive E coli Not Detected; Vibrio PCR Not Detected; Vibrio cholerae PCR Not Detected; Yersinia enterocolitica PCR Not Detected
== END 2023-03-22 09:50 | disposition home or self-care (01) | DRG 394 ==
LOC: ED 07:24 → MEDSURG 08:05
PROVIDERS: Physician Assistant; Surgery; Admitting Provider Family Medicine; Emergency Provider Family Medicine; PCP Family Medicine; Visit Provider Internal Medicine
DX: K55.039 Acute (reversible) ischemia of large intestine, extent unspecified (principal); A69.20 Lyme disease, unspecified; E87.20 Acidosis, unspecified; K62.5 Hemorrhage of anus and rectum; E78.5 Hyperlipidemia, unspecified; M81.0 Age-related osteoporosis without current pathological fracture; E86.0 Dehydration; K57.90 Diverticulosis of intestine, part unspecified, without perforation or abscess without bleeding
CPT/HCPCS: 36415; 74177; 80048; 80053; 80076; 81001; 82565; 83605; 83735; 84100; 84484; 85018; 85025; 85027; 86140; 87045; 87046; 87077; 87086; 87186; 87427; 87505; 93005; 99284; 99285; A9270; C9113; J0696; J0780; J2270; J2405; J7030; J7120; Q9967

== ENCOUNTER 2023-04-22 12:32 | Outpatient (CLI) | payer MEDICARE, OTHER, SELFPAY ==
--- NOTE | 2023-04-22 13:15 | W.ANESCHARGE ---
Anesthesia Charges Start Date/Time Anesthesia Start Date: 04/22/23 Anesthesia Start Time: 13:00 Stop Date/Time Anesthesia Stop Date: 04/22/23 Anesthesia Stop Time: 13:30 Summary Extremes of Age - Over 70 or under 1: MDA
--- NOTE | 2023-04-22 13:32 | P.ANES_ITS ---
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
== END 2023-04-22 12:33 | disposition home or self-care (01) ==
LOC: OP CLINIC 12:32
PROVIDERS: PCP Family Medicine; Visit Provider Internal Medicine Gastroenterology
DX: Z12.11 Encounter for screening for malignant neoplasm of colon (principal); D49.0 Neoplasm of unspecified behavior of digestive system; K57.30 Diverticulosis of large intestine without perforation or abscess without bleeding; Z86.010 Personal history of colon polyps
CPT/HCPCS: 00811; 45380; 88305; 88341; 88342; 99100; J2704

== ENCOUNTER 2023-05-27 06:13 | Inpatient (IN) | payer MEDICARE, OTHER, SELFPAY ==
[2023-05-27] VITALS (31 sets, daily range): BP systolic 108–146; BP diastolic 59–83; PULSE 64–105; RESP 13–16; TEMP 36.1–36.9; O2SAT 93–100; BMI 28.3
[2023-05-27] MEDS: LACTATED RINGERS 1000 ML 1,000 ML 100 ML IV (07:00)
[2023-05-27] MEDS: ERTAPENEM 1 GM in 0.9 % SODIUM CHLORIDE Mini-bag 100 ML IVPB (07:45)
--- NOTE | 2023-05-27 08:27 | SUR.OPER ---
FAMILY- OZZY GROSSMAN
--- NOTE | 2023-05-27 09:58 | PM.GSPRC ---
Operative Note Pre-op diagnosis: Low-grade appendiceal adenocarcinoma Post-op diagnosis: Same Type of Procedure: Laparoscopic right hemicolectomy Indications: The patient is an 82-year-old female who was found to have an appendiceal orifice adenocarcinoma after undergoing diagnostic colonoscopy for recent episode of colitis. Workup revealed no evidence of metastatic disease. Please see Dr. Connelly note for preoperative discussion. Procedure Description: I arrived to the operating room with Dr. Connelly having placed the ports. Once I arrived, the patient was placed into Trendelenburg with the right-side up. The abdomen was surveyed. There was no evidence of peritoneal metastasis noted. I then retracted the omentum cephalad while Dr. Connelly identified the ileocolic pedicle. She dissected the ileocolic vessels using the Harmonic scalpel. Once this was done, high ligation of the ileocolic pedicle was performed using a vascular load Endo-DELON stapler. Dr. Connelly clipped a small area of oozing on the staple line which resulted in excellent hemostasis. Once this was done, I retracted the colon anteriorly while Dr. Connelly dissected in the retroperitoneal plane. This was done mostly bluntly, with the Harmonic scalpel being used to divide wispy attachments. The duodenum was seen, identified the medial aspect of dissection. This was taken up to the hepatic flexure as well as laterally to the abdominal wall. When this was done we turned our attention to the transverse colon. The patient was placed flat. Reflecting the omentum cephalad, Dr. Connelly began incising the attachment between the transverse colon and omentum using the Harmonic scalpel. I provided retraction again during this dissection. Once this was done, Dr. Connelly divided the hepatic flexure lateral peritoneal attachments of the ascending colon using Harmonic scalpel wall I retracted the colon medially. Once this was done the 2 planes of dissection were connected. I then grasped the appendix and pulled this laterally and assisted in retraction while Dr. Connelly divided lateral peritoneal attachments of the terminal ileum and cecum. Once the small bowel appeared to be adequately mobilized, the appendix was grasped with a locking grasper. Dr. Connelly then created a small midline incision just above the umbilicus. I assisted in retraction fall she divided the subcutaneous fat and fascia, entering the abdominal cavity. A small Sarmad wound retractor was placed into the wound and through this the appendix was passed. The bowel came easily through the incision. Dr. Connelly then identified an area of healthy distal ileum and she placed sequential clamps on the mesentery. I then divided the mesentery between clamps and ligated the ends with 0 Vicryl suture. She then divided the small bowel using a blue load DELON stapler. Using 2-0 Vicryl she oversewed small area of bleeding on the staple line. Once this was done, we identified the right branch of the middle colic artery on the transverse colon. Again, Dr. Connelly placed clamps across the mesentery, and I divided and ligated the vessels using Vicryl suture. Once this was done, Dr. Connelly shows a healthy, well perfused area of transverse colon to divide. This was divided with again a blue load DELON stapler. The staple line was again oversewn in a few areas where there was punctate bleeding. This was done by Dr. Connelly. The specimen was examined by palpation. There did appear to be a mass at the appendiceal orifice again by palpation. This was sent to pathology. A piece of omentum on the transverse colon was also removed during the dissection and sent with the specimen Once this was complete, the 2 ends were brought together and green towels were laid around the incision to catch any spillage. Dr. Connelly placed a stay stitch on each end of bowel and created an enterotomy and a colotomy at the end. Through this, she passed each anvil of a blue load DELON stapler again while I assisted with positioning and retraction. Once this was done, ensuring no intervening structures, a 70 cm anastomosis was then created. Stapler was removed and we examined the staple line. There was no bleeding noted. Dr. Connelly then closed the common enterotomy with 3-0 silk interrupted suture in a Lembert fashion. Once this was done the anastomosis was widely patent. The anastomosis was then dropped back into the abdomen. Clean instruments were then obtained and our gloves were exchanged. Dr. Connelly I then closed the fascia with a running looped 0 Maxon. Once this was done the abdomen was again insufflated. There did not appear to be any ongoing bleeding. The anastomosis sat in the right abdomen. Dr. Connelly then closed the left lower quadrant 12 mm port site with 0 Vicryl using a Nikolas-Chin device. At this point I turned the remainder of the case over to Dr. Connelly. Findings: Appendiceal orifice mass. Anesthesia: GETA Surgeon: Alia Connelly MD Co-Surgeon: Pat Santoro MD Estimated blood loss (mL): 20 Additional Specimen Information: 1) Right colon and omentum Condition: stable Disposition: PACU Date of procedure: 05/27/23 Colon Resection Operation Performed with Curative Intent: Yes Tumor location: Cecum Extent of colon and vascular resection: Right hemicolectomy-ileocolic, right colic (if present)
[2023-05-27] MEDS: BUPIVACAINE 0.25% 30 ML INJECTION (10:00)
--- NOTE | 2023-05-27 10:21 | P.GSOP_ITS ---
Operative Note Pre-op diagnosis: 1. Low-grade appendiceal adenocarcinoma. Post-op diagnosis: Same Type of Procedure: 1. Laparoscopic right hemicolectomy. Indications: 82-year-old female was seen in clinic after she underwent a diagnostic colonoscopy for recent colitis. She was found to have a sessile serrated mass at the appendiceal orifice. This was biopsied and biopsy came back as low-grade adenocarcinoma with intact DNA mismatch repair genes. Patient was recently hospitalized with transverse and descending colitis. This was presumed to be ischemic colitis. Her colonoscopy did not show any mucosal changes. We proceeded with CT angiogram and her celiac axis, SMA, and JAG appeared open. There was no evidence of metastatic disease in her CT scan. Patient's CEA was normal. On clinical exam patient's abdomen was not tender to palpation. There was the well-healed lower midline laparotomy scar from patient's previous tubal ligation. Given patient's clinical history, I recommended to proceed with laparoscopic right hemicolectomy. The procedure was discussed in detail. The risks associated with the procedure including infection, bleeding, anastomotic leak, and the need for additional treatments were all discussed the patient and her daughter, and patient agreed to proceed. Procedure Description: After discussing the risks and benefits of the procedure, the patient signed informed consent.? The operative site was marked and the patient was brought to the operating room and placed on the operating table in supine position.? Care was taken to pad the patient's pressure points.?? The patient was then intubated by anesthesia.? Holland catheter was placed under sterile conditions.? The operative site was then prepped and draped in the usual sterile fashion.? A time-out was then performed. A 5-mm laparoscopy port was placed in the left upper quadrant guided by a 5-mm laparoscope placed into a translucent trochar.? Passage through the layers of the abdominal wall was visualized with the laparoscope.? A pneumoperitoneum was established. A 30-degree 5-mm laparoscope was advanced into the abdomen. The abdomen was briefly surveyed, and stomach adhesions to the falciform ligament were noted. A 12-mm port and a 5-mm port were placed in the left low quadrant and suprapubically, respectively, under direct visualization by laparoscope. An additional 5 mm port was placed near umbilicus. Left upper quadrant entrance port was then examined intraabdominally by placing the camera through the left lower quadrant port and no intraabdominal injury was seen.? The cecum was identified and the appendix was identified behind the cecum. There was no evidence of tumor studding on the peritoneal surface or serosal surface of the appendix and cecum. Omental adhesions to the medial colonic mesentery on the right side were divided with Harmonic scalpel. I proceeded with a medial to lateral dissection. The cecum was grasped and retracted towards the abdominal wall.? The ileocolic vascular pedicle was identified and skeletonized from the mesenteric fat with Harmonic scalpel.? The ileocolic vessels were then stapled with a vascular staple load of Endo-DELON stapler.? This was a high ligation of ileocolic vascular pedicle. Minimal bleeding was seen from the staple line and this was controlled with 5 mm clip.? Dissection was then carried towards the liver.? Colonic mesentery was divided with Harmonic scalpel until the inferior portion of the hepatic flexure of the colon was reached.? The duodenum was identified in the view and care was taken not to injure the duodenum. The transverse colon and hepatic flexure were reflected caudad and gastrocolic ligament was divided with the Harmonic scalpel. This dissection was carried towards the lateral abdominal wall in the relatively avascular plane. The omentum was also divided with Harmonic scalpel and included in the specimen. Colonic mesentery of the hepatic flexure was also identified?and divided with Harmonic scalpel. The right branch of the middle colic artery and vein was fairly small and was divided with Harmonic scalpel. When the transverse colon and hepatic flexure were fairly mobile and dissected off retroperitoneum, we then extended our dissection from the hepatic flexure towards the cecum along the lateral abdominal wall.? This was done with Harmonic scalpel.? When the colon was mobile, I turned my attention to the terminal ileum.? The terminal ileum was attached to the lateral abdominal wall. Those adhesions were taken down with Harmonic scalpel until the terminal ileum was mobile. At this time we decided to proceed extracorporeally. The patient was flattened and a supraumbilical 7 cm vertical incision was made with a scalpel incorporating the supraumbilical 5 mm port into the incision. Subcutaneous tissues were divided with cautery. Anterior fascia was divided with cautery.? The Sarmad retractor was placed into the incision.? The dissected right colon and cecum were exteriorized.? The right colon and the terminal ileum were very mobile.? We were able to palpate the appendiceal base tumor in the specimen. We then proceeded with extracorporeal [id number] functional end-to-end anastomosis. Small bowel mesentery near the ileocecal valve was divided with clamps and Vicryl ties. A blue load of DELON stapler was used to divide the terminal ileum and transverse colon at the level of proximal transverse colon. Omentum was attached to the mid transverse colon and this was excised with cautery to allow less tension on future anastomosis. This segment of omentum was then sent to pathology with right hemicolectomy. The transverse colon and distal terminal ileum was then lined up for anastomosis.? An enterotomy was made near the staple line with cautery.? A colotomy was also made near the staple line with cautery.? The handles of the DELON stapler were advanced into the small intestine and colon.? The [id number] anastomosis was then made with the 100 blue load of DELON stapler.? The staple line was examined from the inside and no active bleeding was seen.? The common enterotomy was then closed with interrupted 3-0 silk pop- off sutures using Lembert sutures.? A crotch stitch was placed with 3-0 silk suture as well.? The anastomosis was palpated and was patent.? Anastomosis appeared well perfused.? The anastomosis was then placed into the abdomen.? The right colon was sent to pathology. All the dirty instruments and towels were removed.? The Sarmad retractor was removed.? The surgeon and assistants changed gloves to new gloves.? We then proceeded with abdominal closure. The anterior fascia Of the midline incision was then closed with 2 running 0- 0 Maxon sutures.?The abdomen was then insufflated again.? The anastomosis was examined intra-abdominally.? No bleeding was identified in the surgical field.? The anastomosis appeared to be well perfused.? No significant bleeding was noted in the surgical site.? The fascia of the left lower quadrant 12 mm port incision was closed with 0-0 Vicryl sutures with Nikolas-Chin needle under direct visualization. The 5 mm ports were removed under direct visualization and pneumoperitoneum was reduced through a left upper quadrant incision. The dermis of the supraumbilical incision was closed with interrupted 3-0 Vicryl sutures.? The skin of all incisions was closed with 4-0 Monocryl stitches.? Sterile dressings were placed over the incisions. all counts were correct at the end of the case. Patient tolerated procedure well and was transferred to PACU without any complications. Findings: well perfused Anastomosis. The tumor was small and palpated at the base of the appendix when the colon was removed. Anesthesia: GETA Surgeon: Yehuda Connelly MD Co-Surgeon: Pat Santoro MD Estimated blood loss (mL): 20 Additional Specimen Information: 1. Right colon and omentum. Condition: stable Disposition: PACU Date of procedure: 05/27/23 Colon Resection Operation Performed with Curative Intent: Yes Tumor location: Cecum Extent of colon and vascular resection: Right hemicolectomy-ileocolic, right colic (if present)
--- NOTE | 2023-05-27 10:26 | W.ANESCHARGE ---
Anesthesia Charges Start Date/Time Anesthesia Start Date: 05/27/23 Anesthesia Start Time: 07:33 Stop Date/Time Anesthesia Stop Date: 05/27/23 Anesthesia Stop Time: 10:22
--- NOTE | 2023-05-27 10:29 | W.ANESCHARGE ---
Anesthesia Charges Start Date/Time Anesthesia Start Date: 05/27/23 Anesthesia Start Time: 07:33 Stop Date/Time Anesthesia Stop Date: 05/27/23 Anesthesia Stop Time: 10:22 Summary Extremes of Age - Over 70 or under 1: MDA
--- NOTE | 2023-05-27 10:31 | P.NB_ITS ---
Nerve Block Nerve Block Time Seen by Provider: 07:39 Date Seen: 05/27/23 Type of block requested by surgeon for post-operative analgesia: TAP Side: bilateral Time out performed: Yes Verification of patient name: Yes Verification of date of : Yes Site marking: site marked Name of person performing procedure: Derik Continuous monitoring Was continuous monitoring of O2 sat, B/P, property assessment monitor, recorded every 15 minutes?: Yes Procedure Checklist: sterile prep, needles and gloves Ultrasound guided. Images saved: Yes Medications given in 5ml increments after negative aspiration: Marcaine %: 0.25 mL: 30 Needle gauge: 20 and Exparel mL: 10 Patient tolerated procedure well: Yes Additional comments: Needle noted adjacent to nerve Block Charges Block Charge (with Pro Fee): TAP Bilateral Use of Ultrasound Machine for Block: Yes- US Guidance/pain block
[2023-05-27] MEDS: fentaNYL 100 MCG/2 ML inj 50 MCG IVP ×2 (10:56→11:27)
[2023-05-27] MEDS: KETOROLAC 15 MG/ML inj IVP (11:18)
[2023-05-27] MEDS: HYDROmorphone 0.5 mg/0.5 ml inj IVP (12:10)
[2023-05-27] MEDS: BENZOCAINE/MENTHOL 1 EACH LOZENGE MUCOUS MEM ×3 (14:01→18:24)
[2023-05-27] MEDS: HYDROCODONE-ACETAMIN 5-325 MG 1 TAB PO ×2 (14:01→20:50)
[2023-05-27] MEDS: LACTATED RINGERS 1000 ML 1,000 ML 35 ML IV (18:20)
--- NOTE | 2023-05-27 18:34 | PC.NURSE ---
End Of Shift: The patient arrived to the unit for med surg recovery post milka collectomy. The patient is alert and orientated and is very pleasant. The patient has 1 upper lap site and 2 lower lap sites.. and a medial incision with gauze that is CDI with no drainage. The patient is tolerating a clear liquid diet with no issues... Bowel sounds are hypoactive in all quadrants. No flatus present.. although the patient is burping. Reported moderate pain initially after arrival to the floor Dilaudid was given 1x then 2 [place] were given with adequate pain relief @ 08/03 currently. No nausea/ vomiting. Voiding fine.. Up SBA to the BR. Ice pack to abdomen. Lozenges given throughout the shift for dry throat. VSS on RA. HX of LEATHA so may need O2 overnight. Call light within reach. The patients son and daughter visited throughout the day. CECILIA MANRIQUE BSN
[2023-05-28] VITALS (7 sets, daily range): BP systolic 117–142; BP diastolic 56–78; PULSE 77–96; RESP 16–18; TEMP 36.6; O2SAT 92–94
[2023-05-28] MEDS: HYDROCODONE-ACETAMIN 5-325 MG 1 TAB PO ×3 (03:53→17:02)
[2023-05-28 06:49] LABS: Hemoglobin* 11.9 gm/dL (12.0-16.0)
[2023-05-28 07:08] LABS: Chloride* 100 mmol/L (96-114); Potassium* 4.3 mmol/L (3.6-5.1); Sodium* 134 mmol/L (135-149)
[2023-05-28 07:11] LABS: Anion Gap 6 mEq/L (7-15); Blood Urea Nitrogen* 15 mg/dL (7-30); Carbon Dioxide* 28 mmol/L (20-32); Creatinine* 0.7 mg/dL (0.5-1.5); Est. Creatinine Clearance* 38.75; Estimated Glomerular Filt Rate 87 ml/min
[2023-05-28 07:12] LABS: Calcium* 8.6 mg/dL (8.4-10.6); Glucose* 122 mg/dL (60-115)
--- NOTE | 2023-05-28 08:56 | PC.NURSE ---
Pt alert and oriented x3. Afebrile. Pt reports 5/10 pain in abdomen, managed with PRN medication. Pt's 3 lap sites are in tact with scant dried blood. Pt's midline abdominal dressing is CDI. Pt is up SBA to bathroom, voiding, tolerating clear liquid diet and slept throughout most of night.
--- NOTE | 2023-05-28 09:29 | PM.GSPN ---
Subjective Subjective Date Seen: 05/28/23 Interval history: Patient is doing well. She only complains of abdominal pain with movement. Her most bothersome incision is in the left lower quadrant. She tolerated clears. She denies any nausea vomiting. She did not pass gas. She urinated. She ambulated. Exam Narrative: Exam Narrative: Abdomen is soft, not distended, minimally tender to palpation in the right mid abdomen. Incisions are covered with clean dressings. Const: Vital Signs, click to edit/add: Vital Signs - 24 hr 05/27/23 10:19 05/27/23 10:24 05/27/23 10:29 Temperature 97.3 F L Pulse Rate 85 80 79 Pulse Rate [Right Pulse Oximeter] Respiratory Rate 13 14 14 Blood Pressure 135/69 131/71 140/64 H Blood Pressure [Le ft Arm] Pulse Oximetry 93 96 98 Oxygen Delivery Me thod Nasal Cannula Nasal Cannula Nasal Cannula Oxygen Flow Rate 4 4 4 05/27/23 10:34 05/27/23 10:39 05/27/23 10:44 Temperature Pulse Rate 76 76 82 Pulse Rate [Right Pulse Oximeter] Respiratory Rate 14 14 14 Blood Pressure 134/60 132/67 145/75 H Blood Pressure [Le ft Arm] Pulse Oximetry 98 98 95 Oxygen Delivery Me thod Nasal Cannula Nasal Cannula Room Air Oxygen Flow Rate 4 2 05/27/23 10:49 05/27/23 10:56 05/27/23 11:01 Temperature Pulse Rate 76 66 64 Pulse Rate [Right Pulse Oximeter] Respiratory Rate 14 14 14 Blood Pressure 133/75 131/73 137/74 Blood Pressure [Le ft Arm] Pulse Oximetry 95 96 98 Oxygen Delivery Me thod Room Air OxyMask OxyMask Oxygen Flow Rate 5 5 05/27/23 11:06 05/27/23 11:11 05/27/23 11:18 Temperature Pulse Rate 73 77 83 Pulse Rate [Right Pulse Oximeter] Respiratory Rate 14 14 14 Blood Pressure 138/74 146/77 H 122/60 Blood Pressure [Le ft Arm] Pulse Oximetry 100 100 100 Oxygen Delivery Me thod OxyMask OxyMask OxyMask Oxygen Flow Rate 5 5 5 05/27/23 11:23 05/27/23 11:27 05/27/23 11:32 Temperature Pulse Rate 83 68 85 Pulse Rate [Right Pulse Oximeter] Respiratory Rate 14 14 14 Blood Pressure 138/72 141/71 H 143/60 H Blood Pressure [Le ft Arm] Pulse Oximetry 100 100 100 Oxygen Delivery Me thod OxyMask OxyMask OxyMask Oxygen Flow Rate 5 5 5 05/27/23 11:37 05/27/23 11:42 05/27/23 12:00 Temperature 97.0 F L 97.5 F L Pulse Rate 72 66 Pulse Rate [Right Pulse Oximeter] 81 Respiratory Rate 14 14 16 Blood Pressure 126/67 126/59 L Blood Pressure [Le ft Arm] 131/70 Pulse Oximetry 100 100 100 Oxygen Delivery Me thod OxyMask Room Air Nasal Cannula Oxygen Flow Rate 3 05/27/23 12:08 05/27/23 12:15 05/27/23 12:30 Temperature 97.8 F 97.8 F 97.8 F Pulse Rate 83 Pulse Rate [Right Pulse Oximeter] 91 95 Respiratory Rate 16 16 16 Blood Pressure Blood Pressure [Le ft Arm] 131/71 135/74 108/71 Pulse Oximetry 95 97 Oxygen Delivery Me thod Nasal Cannula Nasal Cannula Nasal Cannula Oxygen Flow Rate 2 2 1 05/27/23 12:45 05/27/23 13:15 05/27/23 13:45 Temperature 97.8 F 98.3 F 97.8 F Pulse Rate Pulse Rate [Right Pulse Oximeter] 89 100 105 H Respiratory Rate 16 16 16 Blood Pressure Blood Pressure [Le ft Arm] 141/70 H 139/80 129/83 Pulse Oximetry 94 95 94 Oxygen Delivery Me thod Nasal Cannula Nasal Cannula Nasal Cannula Oxygen Flow Rate 1 2 1 05/27/23 14:45 05/27/23 15:45 05/27/23 16:45 Temperature 97.8 F 97.3 F L 97.8 F Pulse Rate Pulse Rate [Right Pulse Oximeter] 89 95 96 Respiratory Rate 16 16 16 Blood Pressure Blood Pressure [Le ft Arm] 137/80 143/80 H 143/79 H Pulse Oximetry 94 93 93 Oxygen Delivery Me thod Room Air Room Air Room Air Oxygen Flow Rate 05/27/23 17:45 05/27/23 19:45 05/27/23 23:45 Temperature 98.3 F 97.8 F Pulse Rate Pulse Rate [Right Pulse Oximeter] 100 94 93 Respiratory Rate 16 16 16 Blood Pressure Blood Pressure [Le ft Arm] 119/75 129/75 Pulse Oximetry 95 95 Oxygen Delivery Me thod Room Air Nasal Can nula Room Air Oxygen Flow Rate 05/27/23 23:45 05/28/23 03:55 Temperature 97.8 F 97.9 F Pulse Rate Pulse Rate [Right Pulse Oximeter] 98 88 Respiratory Rate 16 18 Blood Pressure Blood Pressure [Le ft Arm] 121/69 122/64 Pulse Oximetry 93 92 Oxygen Delivery Me thod Room Air Room Air Oxygen Flow Rate Progress Note: A&P Assessment and plan (1) S/P right hemicolectomy: Status: Acute Assessment and Plan: 82-year-old female s/p laparoscopic right hemicolectomy POD 1. Patient is doing well. Will advance her diet to full liquid diet. Will stop her IV fluids. If patient continues to do well, most likely discharge home tomorrow.
--- NOTE | 2023-05-28 16:06 | PC.NURSE ---
VSS AND AFEBRILE. LAP SITES x3 INTACT WITH OLD DRAINAGE AND MIDLINE DRESSING CDI. BOWEL SOUNDS ACTIVE AND PATIENT HAS STARTED PASSING GAS. NO BM BUT PATIENT DID PASS SCANT AMOUNT BLOOD IN TOILET. ADVANCED DIET TO FULL LIQUID AND TOLERATED WITHOUT C/O N/V. PATIENT RECEIVED NORCO FOR PAIN THIS AM WITH IMPROVEMENT OF PAIN BUT REQUIRED DILAUDID IV FOR INCREASED PAIN AFTER LUNCH. ACTIVE ICE PACK TO ABDOMEN.
[2023-05-28] MEDS: BENZOCAINE/MENTHOL 1 EACH LOZENGE MUCOUS MEM (16:42)
--- NOTE | 2023-05-28 22:54 | PC.NURSE ---
Shift Note [id number]: Pt friendly and cooperative. VS WNL and LS COA. Rates her pain 3-5/10, it has been well managed per pt with PO [place], ice, and repositioning. BS hypoactive and pt denies flatus. She has tolerated full liquids very well and has a good appetite. Ambulated the halls x2, approximately 150ft per walk. lap sites intact, distal LLQ site with mild erythema surrounding. Medial dressing C,D,&I.
[2023-05-29] MEDS: HYDROCODONE-ACETAMIN 5-325 MG 1 TAB PO ×2 (01:12→10:52)
[2023-05-29] MEDS: BENZOCAINE/MENTHOL 1 EACH LOZENGE MUCOUS MEM (05:57)
[2023-05-29] MEDS: ACETAMINOPHEN 325 MG TABLET 650 MG PO (05:57)
--- NOTE | 2023-05-29 06:37 | PC.NURSE ---
END OF SHIFT: PT PLEASANT AND COOPERATIVE WITH CARES. DENIES CP, SOB, N/V. A&Ox3. MIDLINE AND LAP SITES x3 C/D/I. UP AND WALKING HALLS x2. UP WITH WALKER INDEPENDENTLY. ACTIVE ICE TO SITE. PT RATES ABD PAIN 3-6/10 WITH RELIEF FROM PRN PAIN MEDS, ICE AND REPO. FULL LIQUID DIET. VSS ON RA; AFEBRILE. CALL LIGHT WITHIN PT REACH.
[2023-05-29 07:45] VITALS: BP 141/72; PULSE 86; RESP 16; TEMP 36.6; O2SAT 93
--- NOTE | 2023-05-29 09:30 | PM.DS1 ---
DS: Providers Provider Date Seen: 05/29/23 Date of admission: 05/27/23 06:13 Primary care physician: Marni Contreras MD Admitting Clinician: Yehuda Connelly MD Attending Physician on discharge: Yehuda Connelly MD DS: Diagnosis Discharge Diagnosis (1) S/P right hemicolectomy: Status: Acute DS: Summary Hospital Course Hospital Course: 82-year-old female was admitted to the hospital after she underwent laparoscopic right hemicolectomy. Patient did well postoperatively. She denied bloating and her abdominal pain was controlled. Patient is not passing gas yet. She had 1 episode of nausea when her pain medication was delayed last night. She tolerated clears and full liquid diet. She ambulated. She urinated. Time Spent with Patient Time attestation: Total time spent providing and/or coordinating discharge services: Exam Narrative: Exam Narrative: Abdomen is soft, not distended, not tender to palpation in the lateral right and left abdomen. Laparoscopic incisions have surrounding ecchymosis. The Steri-Strips are on with small amount of dried blood on the Steri-Strips. Const: Vital Signs, click to edit/add: Vital Signs - 24 hr 05/28/23 13:30 05/28/23 15:00 05/28/23 17:00 Temperature 97.8 F 97.9 F Pulse Rate [Right Pulse Oximeter] 77 83 83 Respiratory Rate 18 16 16 Blood Pressure [Le ft Arm] 142/78 H 117/56 L Pulse Oximetry 93 92 Oxygen Delivery Me thod Room Air Room Air 05/28/23 21:00 Temperature 97.9 F Pulse Rate [Right Pulse Oximeter] 88 Respiratory Rate 16 Blood Pressure [Le ft Arm] 127/68 Pulse Oximetry 92 Oxygen Delivery Me thod Room Air Discharge Plan Discharge Disposition: Home, Self-Care Date of Admission: 05/27/23 06:13 Attending Provider on Discharge: Yehuda Connelly Primary Care Provider: Marni Contreras Condition: Stable Anticipated Discharge Date/Time: 05/29/23 09:25 Discharge Medications: New hydrocodone-acetaminophen 5-325 mg tablet 1 tab PO Q6H PRN (Reason: pain) Qty: 20 0RF Continued atorvastatin 20 mg tablet 20 mg PO QPM alendronate 70 mg tablet 70 mg PO QWEEK biotin 2,500 mcg tablet,chewable 2,500 mcg PO DAILY diphenhydramine HCl [Allergy Medication] 25 mg capsule 25 mg PO HS PRN Lactobacillus acidophilus 0.5 mg (100 million cell) Tablet 1 mg PO TIDWM 30 Days Qty: 60 0RF multivitamin Tablet 1 tab PO DAILY All Day Allergy (cetirizine) 10 mg capsule 10 mg PO DAILY Discharge Orders: Discharge Order (Routine); Ordered 05/29/23 Ordered By: Yehuda Connelly Activity Level: No strenuous activity Discharge Diet: Regular Follow Up Appointments: Marni Contreras MD [Primary Care Provider] - Yehuda Connelly MD [Staff Physician] - (Two weeks [facility]) Forms: [employer] Info Instructions
== END 2023-05-29 14:00 | disposition home or self-care (01) | DRG 331 ==
PROVIDERS: Admitting Provider Surgery; PCP Family Medicine; Visit Provider Surgery
PROC: 0DTF4ZZ Resection of Right Large Intestine, Percutaneous Endoscopic Approach (ICD-10-PCS; principal; 2023-05-27 07:30)
DX: C18.9 Malignant neoplasm of colon, unspecified (principal); G89.18 Other acute postprocedural pain; I10 Essential (primary) hypertension; G47.30 Sleep apnea, unspecified; M06.9 Rheumatoid arthritis, unspecified
CPT/HCPCS: 00790; 00840; 36415; 64488; 76942; 80048; 85018; 88309; 99100; A9270; C9290; J0330; J0665; J1100; J1170; J1335; J1885; J2371; J2405; J2704; J2710; J3010; J7120

== ENCOUNTER 2023-06-18 14:38 | Outpatient (CLI) | payer MEDICARE, OTHER, SELFPAY ==
--- NOTE | 2023-06-18 15:00 | CRLHL7_ITS ---
For Patients: As a result of the Century Cures Act, medical imaging exams and procedure reports are released immediately into your electronic medical record. You may view this report before your referring provider. If you have questions, please contact your health care provider. Indication: COLON CANCER Technique: Post contrast CT chest. 75 cc Isovue 370 intravenous contrast. Please note that all CT scans at this facility use dose modulation, iterative reconstruction, and/or weight-based dosing when appropriate to reduce radiation dose to as low as reasonably achievable. Comparison: 05/21/2023, 03/20/2023 Findings: Visualized thyroid gland is normal. Atherosclerotic changes are present. Breast tissue is unremarkable. No enlarged mediastinal, hilar or axillary lymph nodes. No pleural or pericardial effusion. Small hiatal hernia is present. The spleen is not enlarged. Normal adrenal glands. Small incidental splenule. Fatty liver. No fracture is present. No suspicious lesion. Linear scarring in both lung apices. Ground-glass density in the right upper lobe measuring 9 millimeters, 3/35. Nodular density right upper lobe adjacent to the fissure measuring 3 millimeters, 3/55. Perifissural nodule left lower lobe measuring 4.4 millimeters, 3/52. Impression: Focal ground-glass nodular density in the right upper lobe measuring 9 millimeters, likely related to mild infiltrate. A few scattered small pulmonary nodules bilaterally measuring less than 5 millimeters, likely incidental. No adenopathy. Please note that all CT scans at this facility use dose modulation, iterative reconstruction, and/or weight-based dosing when appropriate to reduce radiation dose to as low as reasonably achievable. Dictated by Tim Fabian MD @ 06/20/2023 11:22:26 AM (Electronically Signed)
== END 2023-06-18 14:39 | disposition home or self-care (01) ==
LOC: CT 14:39
PROVIDERS: PCP Family Medicine; Visit Provider Internal Medicine Hematology & Oncology
DX: C18.9 Malignant neoplasm of colon, unspecified (principal); R91.8 Other nonspecific abnormal finding of lung field
CPT/HCPCS: 71260; Q9967

== ENCOUNTER 2023-09-25 08:17 | Outpatient (CLI) | payer MEDICARE, OTHER, SELFPAY ==
--- NOTE | 2023-09-25 09:00 | CT_ITS ---
Patient: SARAH BURNETT Facility:?[facility] Patient ID:?[id number] Site Patient ID:?[id number]. Site :?[id number] Study:?CT-Chest/Abd/Pelvis W/ 81CC ISOVUE 370-09/25/2023 9:03:11 AM Ordering Physician:MIKAL Final Report: INDICATION: Malignant neoplasm of colon. TECHNIQUE: CT chest, abdomen and pelvis acquired with 81 mL Isovue 370 IV contrast. COMPARISON: 05/21/2023 CT angiogram FINDINGS: CHEST: Cardiovascular structures: Heart size is normal. Thoracic aorta and main pulmonary artery are normal in caliber. Mediastinum and vandana: No mass or adenopathy. Lungs and pleura: Subtle 13 mm ground-glass nodule right upper lobe image 32 series 3. 4.6 mm perifissural nodule left lung image 49. Chest wall and axilla: No mass or adenopathy. Bones: No suspicious bone lesions. Unremarkable for age. ABDOMEN AND PELVIS: Liver: Mild steatosis. No mass. Gallbladder and bile ducts: Unremarkable. Pancreas: Unremarkable. Spleen: Unremarkable. Adrenal glands: Unremarkable. Kidneys: Small cysts in both kidneys. GI tract: Right hemicolectomy. Vascular structures: Unremarkable. Lymph nodes: Unremarkable. Miscellaneous: Unremarkable. No free air or significant free fluid. Pelvic Organs: Unremarkable. Bones: No suspicious bone lesions. Unremarkable for age. IMPRESSION: 1. No specific evidence for metastatic disease. 2. Right hemicolectomy. 3. 13 mm right upper lobe ground-glass nodule and 4.6 cm left perifissural nodules. Please see follow-up guidelines below. 4. Hepatic steatosis. [employer] GUID[employer]INES - SUBSOLID NODULES: GROUND GLASS - nodule less than 6 mm: No routine follow-up. - nodule greater than 6 mm: CT at 6-12 months to confirm persistence, then CT every 2 years until 5 years. [employer] GUIDELINES - SOLID NODULES: SINGLE LOW RISK - nodule less than 6 mm: No routine follow-up. - nodule 6-8 mm: CT at 6-12 months, then consider CT at 18-24 months. - nodule greater than 8 mm: Consider CT at 3 months, PET/CT or tissue sampling. SINGLE HIGH RISK - nodule less than 6 mm: Optional CT at 12 months. - nodule 6-8 mm: CT at 6-12 months, then CT at 18-24 months. - nodule greater than 8 mm: Consider CT at 3 months, PET/CT or tissue sampling. Please note that all CT scans at this facility use dose modulation, iterative reconstruction, and/or weight-based dosing when appropriate to reduce radiation dose to as low as reasonably achievable. Dictated by True Sanon MD @ 09/25/2023 2:09:52 PM Signed by:?True Sanon MD @09/25/2023 2:09:52 PM (Electronic Signature)
== END 2023-09-25 08:18 | disposition home or self-care (01) ==
LOC: CT 08:19
PROVIDERS: PCP Family Medicine; Visit Provider Internal Medicine Hematology & Oncology
DX: C18.9 Malignant neoplasm of colon, unspecified (principal); R91.8 Other nonspecific abnormal finding of lung field; K76.0 Fatty (change of) liver, not elsewhere classified
CPT/HCPCS: 71260; 74177; Q9967

== ENCOUNTER 2023-11-28 08:30 | Outpatient (RCR) | payer MEDICARE, OTHER, SELFPAY ==
[2023-06-10 12:47] LABS: Hemoglobin* 11.9 gm/dL (12.0-16.0); Lymphocytes Percent Auto 22.4 % (20-44); Mean Corpuscular HGB Conc 33 gm/dL (32-36); Mean Corpuscular Hemoglobin 30 pg (26-34); Mean Corpuscular Volume 89 fL (80-100); Neutrophils Percent Auto 66.1 % (42.0-72.0); Platelet Count* 289 K/uL (140-440); RDW Coefficient of Variation % 14.4 % (11.5-15.5); Red Blood Count 4.03 m/uL (4.00-5.20); White Blood Count* 8.12 K/uL (4.50-11.00)
[2023-06-10 12:48] LABS: Basophils Absolute Auto 0.04 K/uL (0.00-0.30); Basophils Percent Auto 0.5 % (0.0-3.0); Eosinophils Absolute Auto 0.24 K/uL (0.00-0.50); Immature Granulocytes Abs Auto 0.01 K/uL (0.00-0.30); Immature Granulocytes Pct Auto 0.1 %; Lymphocytes Absolute Auto 1.82 K/uL (0.90-2.90); Monocytes Percent Auto 7.9 % (0.0-11.0); Neutrophils Absolute Auto 5.37 K/uL (1.7-7.0); Slide Review Reflex No
[2023-06-10 13:01] LABS: Albumin* 4.4 g/dL (3.3-5.0)
[2023-06-10 13:02] LABS: Chloride* 104 mmol/L (96-114); Potassium* 4.1 mmol/L (3.6-5.1); Sodium* 137 mmol/L (135-149)
[2023-06-10 13:04] LABS: Anion Gap 10 mEq/L (7-15); Aspartate Amino Transferase* 27 U/L (12-35); Bilirubin Total* 0.5 mg/dL (0.1-1.5); Carbon Dioxide* 23 mmol/L (20-32); Creatinine* 0.6 mg/dL (0.5-1.5); Est. Creatinine Clearance* 35.49; Estimated Glomerular Filt Rate 91 ml/min
[2023-06-10 13:05] LABS: Alanine Aminotransferase* 22 U/L (4-35); Alkaline Phosphatase* 69 U/L (40-150); Blood Urea Nitrogen* 23 mg/dL (7-30); Calcium* 9.6 mg/dL (8.4-10.6); Glucose* 81 mg/dL (60-115); Total Protein* 7.5 g/dL (6.0-8.3)
[2023-06-11 21:41] LABS: Carcinoembryonic Antigen 0.7 ng/mL
--- NOTE | 2023-07-01 14:15 | ONC.NURNOTE ---
Addendum entered by Evelyn iGl RN 07/02/23 12:17: Discussed [facility] as an option for capecitabine- with roughly cost per cycle $60 (including $5 shipping cost) patient requests that the RX be submitted to [facility] Addendum entered by Evelyn Gil RN 07/02/23 12:00: Copay for Capecitabine per [facility] is $463.63 Patient to be notified Original Note: New RX faxed to [facility] at [phone] Capecitabine 1800 mg BID 3 X 500 mg BID and 2 X 150 mg BID disp #84 500mg disp # 56 150 mg discussed with patient the options of using [facility] or going through insurance and using a specialty pharmacy patient and daughter requests that RX be sent to [facility] RX, demographics, med list and front and back of insurance cards faxed to [facility]
--- NOTE | 2023-07-01 14:26 | ONC.NURNOTE ---
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 and has lips swelling, and trouble breathing, reports that she takes benadryl to relieve the symptoms this was discussed with Dr Molina and it was decided that the patient just take one pill to start and have someone nearby with bendaryl on hand and monitor for allergic reactions telegraphic typewriter installer suggested that Umu do this for the first day of her treatment and then go to the full dose after 24 hours with no reaction patient and daughter are agreeable to this plan reviewed dosage, taking after a meal about 12 hours apart 14 days on, 7 days off reviewed content of new treatment binder and emphasized need to go to ER if fever, call with > 2 loose stools in a day, redness or tenderness on hands or feets or mouth sores DANIEL signed
--- NOTE | 2023-07-02 13:37 | ONC.NURNOTE ---
No additional lab needed prior to starting capecitabine per Dr Molina CBC and CMP WNL - drawn mid May
--- NOTE | 2023-07-04 10:12 | ONC.NURNOTE ---
Daughter Mey phoned with update: [phone] They have ordered the 2 doses of capecitabine from [facility] for $58 for 3 week supply delivery expected in abotu 7 days Mey will call clinic when medication arrives and start date determined- sba underwriter recommends that patient start on MTW so that staff can follow her the first days- before the weekend Follow up appt will be scheduled for provider and lab 2 1/2- 3 weeks after start date no refills on this RX patient has a allergy to certain preservatives (the coating on apples)- it is unknown if capecitabine has a preservative coating- Dr Molina recommended to take just 1 pill for her first dose and have someone at home to observe, with Benadryl on hand Umu uses benadryl if she has an allergic reaction to a preservative patient may take her full dose as her 2 nd dose if no noted allergic reaction- per Dr Molina recommendation
--- NOTE | 2023-07-09 11:34 | PC.NURSE ---
Called pt today to check in re: capecitabine. Pt states that she has not yet received the drug yet. Umu's daughter is planning to call to check on timing today. Umu plans to start her medication on 07/15/2023. RN supported this plan. Umu also states that she is allergic to some preservatives in medications so asked if ok to take 1 pill and wit 15 minutes to see if she has any reaction and if ok, take the rest. RN approved that plan as well. Asked pt to have Mey, her daughter, call when drug is received so we know things are on track to start on 07/15/2023. We can also schedule her follow-up labs/MD appts at that time for 2.5-3 weeks after starting drug. Support offered.
--- NOTE | 2023-07-16 14:25 | ONC.NURNOTE ---
Capecitabine update: daughter Mey called with her mom Umu- Test dose of Capecitabine taken last night- one 150mg tab to text if there is a sensitivity to the coating on the tablets daughter staying with patient this week tolerated single pill with no adverse events took the full dose this am- 3X 500mg tabs and 2 X 150 mg tabs next appts with lab set up follow up call later this week
--- NOTE | 2023-07-18 12:13 | ONC.NURNOTE ---
Addendum entered by Evelyn Gil RN 07/18/23 12:22: Umu-phoned back reports no change in stool - moves bowels 1-3 times a day denies mouth sores and denies any hand/foot redness or tenderness will follow up next week Original Note: Capecitabine drug tolerance check in: message left on voice mail to call [facility] with follow up refill submitted to [facility]
--- NOTE | 2023-07-22 10:34 | ONC.NURNOTE ---
Addendum entered by Evelyn Gil RN 07/29/23 08:46: Umu and her daughter Mey phoned in with an update on tremors and dizziness since holding capecitabine last week: reports 1 episode of tremors last Saturday, 2 on Saturday, 1 on Saturday and nothing further since Saturday dizziness- patient has had prior to starting capecitabine and reports it is as per her baseline- she has period of dizziness during the day that may occur while up walking or sitting- does not happen with change in position this has not changed since stopping the capecitabine this past week capecitabine has been on hold since last Saturday- 07/22/23 Addendum entered by Evelyn Gil RN 07/22/23 13:21: Orders received from Dr Molina and called to Umu: Hold capecitabine for this week follow up by phone next week to check on status of tremors patient was told to also hold compazine and ondansetron- she has not been taking these- did not pick these Rx's up from the pharmacy Original Note: Capecitabine tolerance follow up call: denies any diarrhea- moving bowels twice a day- both formed stools no indication of plantar/palmar erythema no pain in mouth or dysphagia reports eating her regular diet has been active per her schedule does report some intermittent dizziness when up- has a walker to use at home and this was recommended to use- patient reports that she is intentional and steady when up also reports intermittent tremors of hands and feet that occur 1-2 times a day last about 2-4 minutes has not interfered with function verse writer noted that this is a side effect per clinical pharmacology of less than 10% occurrence rate provider will be updated follow up call again later this week
--- NOTE | 2023-07-29 13:39 | ONC.NURNOTE ---
Addendum entered by Evelyn Gil RN 07/29/23 14:30: follow up instructions given to patient and daughter instructed to keep a record of tremors date and time music writer will call patient on Saturday after she starts back on Saturday Original Note: Update on tremors reviewed with Dr Molina Plan as follows: decrease capecitabine to 1500mg BID (3 X 500mg) start tomorrow X 7 days change RTC from Saturday with Lisa Morales to Saturday with Dr Molina- lab first patient should call with any further tremors LM on Umu's voicemail to call
--- NOTE | 2023-07-31 13:40 | ONC.NURNOTE ---
reports feeling very well reported minimal 3-4 minute tremor this am reports that tremors have mostly have resolved and states that she is feeling very well overall
[2023-08-07 10:07] LABS: Basophils Absolute Auto 0.03 K/uL (0.00-0.30); Basophils Percent Auto 0.5 % (0.0-3.0); Eosinophils Percent Auto 3.6 % (0.0-7.0); Hemoglobin* 13.1 gm/dL (12.0-16.0); Lymphocytes Absolute Auto 1.64 K/uL (0.90-2.90); Lymphocytes Percent Auto 29.7 % (20-44); Mean Corpuscular HGB Conc 33 gm/dL (32-36); Mean Corpuscular Hemoglobin 30 pg (26-34); Mean Corpuscular Volume 90 fL (80-100); Monocytes Percent Auto 9.2 % (0.0-11.0); Neutrophils Absolute Auto 3.15 K/uL (1.7-7.0); Platelet Count* 236 K/uL (140-440); RDW Coefficient of Variation % 18.5 % (11.5-15.5); Red Blood Count 4.43 m/uL (4.00-5.20); White Blood Count* 5.53 K/uL (4.50-11.00)
[2023-08-07 10:42] LABS: Slide Review Reflex No
[2023-08-07 11:00] LABS: Albumin* 4.5 g/dL (3.3-5.0); Chloride* 104 mmol/L (96-114)
[2023-08-07 11:01] LABS: Potassium* 4.2 mmol/L (3.6-5.1); Sodium* 137 mmol/L (135-149)
[2023-08-07 11:03] LABS: Alkaline Phosphatase* 54 U/L (40-150); Anion Gap 11 mEq/L (7-15); Aspartate Amino Transferase* 34 U/L (12-35); Blood Urea Nitrogen* 27 mg/dL (7-30); Carbon Dioxide* 22 mmol/L (20-32); Creatinine* 0.8 mg/dL (0.5-1.5); Estimated Glomerular Filt Rate 74 ml/min; Glucose* 118 mg/dL (60-115); Total Protein* 7.8 g/dL (6.0-8.3)
[2023-08-07 11:04] LABS: Alanine Aminotransferase* 25 U/L (4-35); Calcium* 9.7 mg/dL (8.4-10.6)
--- NOTE | 2023-08-26 13:07 | ONC.NURNOTE ---
Capecitabine refilled to [facility]- Daughter Mey reports tolerating this current schedule well with side effects of fatigue due next week for lab no other concerns at this time
[2023-09-04 09:29] LABS: Basophils Absolute Auto 0.03 K/uL (0.00-0.30); Basophils Percent Auto 0.6 % (0.0-3.0); Eosinophils Absolute Auto 0.22 K/uL (0.00-0.50); Eosinophils Percent Auto 4.4 % (0.0-7.0); Hematocrit 42.4 % (33.0-51.0); Hemoglobin* 14.2 gm/dL (12.0-16.0); Lymphocytes Absolute Auto 1.46 K/uL (0.90-2.90); Lymphocytes Percent Auto 29.5 % (20-44); Mean Corpuscular HGB Conc 34 gm/dL (32-36); Mean Corpuscular Hemoglobin 31 pg (26-34); Mean Corpuscular Volume 92 fL (80-100); Monocytes Percent Auto 7.9 % (0.0-11.0); Neutrophils Absolute Auto 2.85 K/uL (1.7-7.0); Neutrophils Percent Auto 57.6 % (42.0-72.0); Platelet Count* 200 K/uL (140-440); RDW Coefficient of Variation % 20.4 % (11.5-15.5); White Blood Count* 4.95 K/uL (4.50-11.00)
[2023-09-04 09:30] LABS: Slide Review Reflex No
[2023-09-04 09:49] LABS: Albumin* 4.5 g/dL (3.3-5.0); Chloride* 104 mmol/L (96-114); Potassium* 3.7 mmol/L (3.6-5.1); Sodium* 139 mmol/L (135-149)
[2023-09-04 09:51] LABS: Creatinine* 0.7 mg/dL (0.5-1.5); Estimated Glomerular Filt Rate 87 ml/min
[2023-09-04 09:52] LABS: Alanine Aminotransferase* 25 U/L (4-35); Alkaline Phosphatase* 56 U/L (40-150); Anion Gap 10 mEq/L (7-15); Aspartate Amino Transferase* 31 U/L (12-35); Bilirubin Total* 0.8 mg/dL (0.1-1.5); Blood Urea Nitrogen* 20 mg/dL (7-30); Calcium* 9.6 mg/dL (8.4-10.6); Carbon Dioxide* 25 mmol/L (20-32); Glucose* 123 mg/dL (60-115); Total Protein* 7.9 g/dL (6.0-8.3)
--- NOTE | 2023-09-05 10:48 | ONC.NURNOTE ---
Lab results reviewed by this continuity writer as stable- CEA pending- appt with PA next week denies any redness, pain or tingling in hands or feet, denies watery stools or pain in mouth with swallowing this is her week off of capecitabine- due to restart on 09/09/23
[2023-09-06 03:00] LABS: Carcinoembryonic Antigen 1.4 ng/mL
[2023-10-02 09:39] LABS: Basophils Absolute Auto 0.05 K/uL (0.00-0.30); Basophils Percent Auto 0.9 % (0.0-3.0); Eosinophils Absolute Auto 0.18 K/uL (0.00-0.50); Eosinophils Percent Auto 3.3 % (0.0-7.0); Hematocrit 42.5 % (33.0-51.0); Hemoglobin* 14.2 gm/dL (12.0-16.0); Lymphocytes Absolute Auto 1.64 K/uL (0.90-2.90); Lymphocytes Percent Auto 30.3 % (20-44); Mean Corpuscular HGB Conc 33 gm/dL (32-36); Mean Corpuscular Hemoglobin 32 pg (26-34); Mean Corpuscular Volume 95 fL (80-100); Monocytes Percent Auto 10.9 % (0.0-11.0); Neutrophils Absolute Auto 2.95 K/uL (1.7-7.0); Neutrophils Percent Auto 54.6 % (42.0-72.0); Platelet Count* 217 K/uL (140-440); RDW Coefficient of Variation % 20.1 % (11.5-15.5); Red Blood Count 4.47 m/uL (4.00-5.20); White Blood Count* 5.41 K/uL (4.50-11.00)
[2023-10-02 09:43] LABS: Slide Review Reflex Yes
[2023-10-02 09:59] LABS: Albumin* 4.5 g/dL (3.3-5.0); Chloride* 106 mmol/L (96-114); Potassium* 4.1 mmol/L (3.6-5.1); Sodium* 139 mmol/L (135-149)
[2023-10-02 10:01] LABS: Creatinine* 0.6 mg/dL (0.5-1.5); Estimated Glomerular Filt Rate 90 ml/min
[2023-10-02 10:02] LABS: Alanine Aminotransferase* 26 U/L (4-35); Alkaline Phosphatase* 56 U/L (40-150); Anion Gap 8 mEq/L (7-15); Aspartate Amino Transferase* 32 U/L (12-35); Bilirubin Total* 0.8 mg/dL (0.1-1.5); Blood Urea Nitrogen* 21 mg/dL (7-30); Carbon Dioxide* 25 mmol/L (20-32); Glucose* 101 mg/dL (60-115); Total Protein* 7.9 g/dL (6.0-8.3)
[2023-10-02 10:03] LABS: Calcium* 9.6 mg/dL (8.4-10.6)
[2023-10-02 11:29] LABS: Slide Review Acceptable Review (Acceptable)
[2023-10-03 19:01] LABS: Carcinoembryonic Antigen 1.3 ng/mL
[2023-10-31 09:23] LABS: Basophils Absolute Auto 0.03 K/uL (0.00-0.30); Basophils Percent Auto 0.6 % (0.0-3.0); Eosinophils Absolute Auto 0.21 K/uL (0.00-0.50); Eosinophils Percent Auto 3.9 % (0.0-7.0); Hematocrit 40.6 % (33.0-51.0); Hemoglobin* 13.7 gm/dL (12.0-16.0); Immature Granulocytes Abs Auto 0.01 K/uL (0.00-0.30); Immature Granulocytes Pct Auto 0.2 %; Lymphocytes Absolute Auto 1.65 K/uL (0.90-2.90); Lymphocytes Percent Auto 30.9 % (20-44); Mean Corpuscular HGB Conc 34 gm/dL (32-36); Mean Corpuscular Hemoglobin 33 pg (26-34); Mean Corpuscular Volume 98 fL (80-100); Monocytes Percent Auto 11.6 % (0.0-11.0); Neutrophils Absolute Auto 2.82 K/uL (1.7-7.0); Neutrophils Percent Auto 52.8 % (42.0-72.0); Platelet Count* 196 K/uL (140-440); RDW Coefficient of Variation % 18.9 % (11.5-15.5); Red Blood Count 4.16 m/uL (4.00-5.20); White Blood Count* 5.34 K/uL (4.50-11.00)
[2023-10-31 09:24] LABS: Slide Review Reflex No
[2023-10-31 09:36] LABS: Albumin* 4.5 g/dL (3.3-5.0); Chloride* 106 mmol/L (96-114); Potassium* 4.2 mmol/L (3.6-5.1); Sodium* 140 mmol/L (135-149)
[2023-10-31 09:38] LABS: Creatinine* 0.7 mg/dL (0.5-1.5); Estimated Glomerular Filt Rate 87 ml/min
[2023-10-31 09:39] LABS: Alanine Aminotransferase* 29 U/L (4-35); Alkaline Phosphatase* 55 U/L (40-150); Anion Gap 6 mEq/L (7-15); Aspartate Amino Transferase* 34 U/L (12-35); Bilirubin Total* 0.9 mg/dL (0.1-1.5); Blood Urea Nitrogen* 26 mg/dL (7-30); Calcium* 9.3 mg/dL (8.4-10.6); Carbon Dioxide* 28 mmol/L (20-32); Glucose* 109 mg/dL (60-115); Total Protein* 7.8 g/dL (6.0-8.3)
[2023-11-25 08:51] LABS: Basophils Absolute Auto 0.03 K/uL (0.00-0.30); Basophils Percent Auto 0.6 % (0.0-3.0); Eosinophils Absolute Auto 0.11 K/uL (0.00-0.50); Eosinophils Percent Auto 2.3 % (0.0-7.0); Hematocrit 40.8 % (33.0-51.0); Hemoglobin* 13.7 gm/dL (12.0-16.0); Lymphocytes Absolute Auto 1.57 K/uL (0.90-2.90); Lymphocytes Percent Auto 32.6 % (20-44); Mean Corpuscular HGB Conc 34 gm/dL (32-36); Mean Corpuscular Hemoglobin 33 pg (26-34); Mean Corpuscular Volume 99 fL (80-100); Monocytes Percent Auto 11.6 % (0.0-11.0); Neutrophils Absolute Auto 2.55 K/uL (1.7-7.0); Neutrophils Percent Auto 52.9 % (42.0-72.0); Platelet Count* 179 K/uL (140-440); RDW Coefficient of Variation % 17.5 % (11.5-15.5); Red Blood Count 4.11 m/uL (4.00-5.20); White Blood Count* 4.82 K/uL (4.50-11.00)
[2023-11-25 08:54] LABS: Slide Review Reflex No
[2023-11-25 09:04] LABS: Albumin* 4.7 g/dL (3.3-5.0); Chloride* 106 mmol/L (96-114)
[2023-11-25 09:05] LABS: Potassium* 4.4 mmol/L (3.6-5.1); Sodium* 138 mmol/L (135-149)
[2023-11-25 09:07] LABS: Alkaline Phosphatase* 55 U/L (40-150); Anion Gap 6 mEq/L (7-15); Aspartate Amino Transferase* 36 U/L (12-35); Bilirubin Total* 1.3 mg/dL (0.1-1.5); Blood Urea Nitrogen* 22 mg/dL (7-30); Carbon Dioxide* 26 mmol/L (20-32); Creatinine* 0.7 mg/dL (0.5-1.5); Estimated Glomerular Filt Rate 87 ml/min
[2023-11-25 09:08] LABS: Alanine Aminotransferase* 32 U/L (4-35); Calcium* 9.1 mg/dL (8.4-10.6); Glucose* 78 mg/dL (60-115)
== END 2023-12-07 23:59 | disposition home or self-care (01) ==
LOC: CCIC 08:30
PROVIDERS: Internal Medicine Hematology & Oncology; PCP Family Medicine; Referring Provider Family Medicine; Visit Provider Physician Assistant
DX: C18.1 Malignant neoplasm of appendix (principal); C18.9 Malignant neoplasm of colon, unspecified; R53.83 Other fatigue; L27.1 Localized skin eruption due to drugs and medicaments taken internally
CPT/HCPCS: 36415; 80053; 82378; 85025; 99202; 99205; 99214; 99215; G0463

== ENCOUNTER 2024-03-09 07:59 | Outpatient (CLI) | payer MEDICARE, OTHER, SELFPAY ==
--- NOTE | 2024-03-09 08:15 | CRLHL7_ITS ---
For Patients: As a result of the Century Cures Act, medical imaging exams and procedure reports are released immediately into your electronic medical record. You may view this report before your referring provider. If you have questions, please contact your health care provider. ULTRASOUND-GUIDED LEFT BREAST BIOPSY AND POST-BIOPSY DIGITAL MAMMOGRAM FOR BIOPSY MARKER PLACEMENT CLINICAL HISTORY: Indeterminate nodule, possible papilloma. COMPARISON STUDIES: 03/03/2024. TECHNIQUE: Real-time ultrasound with image documentation was used for targeting the breast lesion. Core biopsy specimens were obtained using an automated gun with a 18-gauge biopsy needle. Post-biopsy CC and ML digital mammograms were obtained to document position of the biopsy marker. CONSENT and TIME OUT: The procedure, risks, and alternatives were explained to the patient and a consent was signed. [place] Protocol was followed including pre-procedure verification that relevant information/documentation was available, reviewed and properly matched to the patient; consent accurate and complete; and equipment and supplies available. Time Out was conducted just prior to starting procedure to verify the four required elements: patient identity, correct side/site marked (if applicable), procedure, relevant images/results properly labeled and displayed (if applicable). PROCEDURE: The patient was positioned supine on the ultrasound table. The breast was prepped with ChloraPrep. 6 cc 1 percent lidocaine used for local anesthesia. Core samples were obtained. A sterile metal biopsy clip was placed percutaneously to ira the lesion position within the breast. The specimens were placed in 10% formalin and sent to the pathology department. Pressure was held on the biopsy site until all bleeding subsided. The skin incision was closed with Steri-Strips. An ice pack was positioned over the biopsy site. Post-biopsy instructions were reviewed with the patient, and a written copy was given to her. LATERALITY: LEFT breast. LESION: 6 x 4 x 8 mm intraductal nodule at 3 o`clock, 1 cm from the nipple. SUSPICION FOR MALIGNANCY: Intermediate, possible papilloma. NUMBER OF SAMPLES: 5. BIOPSY CLIP SHAPE: Oval. PROXIMITY OF CLIP TO TARGET: The clip was placed within the lesion during the study but appears to have migrated distally on the post clip films. IMPRESSION: Ultrasound-guided breast biopsy. When the pathology report is available, an addendum to this report will be made. ACR not applicable Dictated by Tim Fabian MD @ 03/09/2024 9:02:26 AM /sp/whitney SP/Dictated by: Tim Fabian MD @ 03/09/2024 9:02:00 AM (Electronically Signed)
--- NOTE | 2024-03-09 09:00 | CRLHL7_ITS ---
For Patients: As a result of the Century Cures Act, medical imaging exams and procedure reports are released immediately into your electronic medical record. You may view this report before your referring provider. If you have questions, please contact your health care provider. PLEASE SEE LEFT BREAST ULTRASOUND-GUIDED BIOPSY OF SAME DAY. CRL:sp SP/Dictated by: Tim Fabian MD @ 03/09/2024 9:02:00 AM (Electronically Signed)
== END 2024-03-09 08:00 | disposition home or self-care (01) ==
LOC: US 07:59
PROVIDERS: PCP Family Medicine; Visit Provider Family Medicine
DX: N63.20 Unspecified lump in the left breast, unspecified quadrant (principal); R92.8 Other abnormal and inconclusive findings on diagnostic imaging of breast
CPT/HCPCS: 19083; 77065; 88305; A4648; A4649

== ENCOUNTER 2024-03-24 07:19 | Outpatient (CLI) | payer MEDICARE, OTHER, SELFPAY ==
[2024-03-24 07:51] LABS: Creatinine* 0.7 mg/dL (0.5-1.5); Estimated Glomerular Filt Rate 87 ml/min
--- NOTE | 2024-03-24 08:00 | CRLHL7_ITS ---
For Patients: As a result of the Century Cures Act, medical imaging exams and procedure reports are released immediately into your electronic medical record. You may view this report before your referring provider. If you have questions, please contact your health care provider. INDICATION: Follow-up colon cancer, history of pulmonary nodules TECHNIQUE: CT chest, abdomen and pelvis acquired with 83 mL Isovue 370 IV contrast. COMPARISON: 12/23/2023, 09/25/2023 chest abdomen pelvis CTs FINDINGS: CHEST: Cardiovascular structures: Heart size is normal. Thoracic aorta and main pulmonary artery are normal in caliber. Mediastinum and vandana: No mass or adenopathy. Lungs and pleura: Stable 1 cm right upper lobe ground-glass nodule series 3, image 31. Stable 4 mm perifissural nodule left lung image 44. Chest wall and axilla: No mass or adenopathy. Bones: No suspicious bone lesions. Unremarkable for age. ABDOMEN AND PELVIS: Liver: Unremarkable. Gallbladder and bile ducts: Unremarkable. Pancreas: Unremarkable. Spleen: Unremarkable. Adrenal glands: Unremarkable. Kidneys: Bilateral cysts. GI tract: Right hemicolectomy. Vascular structures: Unremarkable. Lymph nodes: Unremarkable. Miscellaneous: Unremarkable. No free air or significant free fluid. Pelvic Organs: Unremarkable. Bones: No suspicious bone lesions. Unremarkable for age. IMPRESSION: 1. Right hemicolectomy. No specific evidence for metastatic disease. 2. Stable right upper lobe ground-glass nodule and left lung perifissural nodule. Please note that all CT scans at this facility use dose modulation, iterative reconstruction, and/or weight-based dosing when appropriate to reduce radiation dose to as low as reasonably achievable. Dictated by True Sanon MD @ 03/24/2024 1:04:05 PM (Electronically Signed)
[2024-03-27 16:41] LABS: Chloride* 106 mmol/L (96-114)
[2024-03-27 16:42] LABS: Albumin* 4.6 g/dL (3.3-5.0); Potassium* 4.8 mmol/L (3.6-5.1); Sodium* 137 mmol/L (135-149)
[2024-03-27 16:44] LABS: Bilirubin Total* 0.7 mg/dL (0.1-1.5)
[2024-03-27 16:45] LABS: Alanine Aminotransferase* 38 U/L (4-35); Alkaline Phosphatase* 50 U/L (40-150); Anion Gap 11 mEq/L (7-15); Aspartate Amino Transferase* 50 U/L (12-35); Blood Urea Nitrogen* 23 mg/dL (7-30); Calcium* 9.7 mg/dL (8.4-10.6); Carbon Dioxide* 20 mmol/L (20-32); Glucose* 128 mg/dL (60-115); Total Protein* 7.9 g/dL (6.0-8.3)
[2024-03-30 02:11] LABS: Carcinoembryonic Antigen 2.1 ng/mL
== END 2024-03-24 07:20 | disposition home or self-care (01) ==
PROVIDERS: PCP Family Medicine; Visit Provider Physician Assistant
DX: C18.9 Malignant neoplasm of colon, unspecified (principal); R91.8 Other nonspecific abnormal finding of lung field
CPT/HCPCS: 36415; 71260; 74177; 80053; 82378; 82565; Q9967

== ENCOUNTER 2024-04-01 10:00 | Outpatient (RCR) | payer MEDICARE, OTHER, SELFPAY ==
[2023-12-23 07:40] LABS: Basophils Absolute Auto 0.02 K/uL (0.00-0.30); Basophils Percent Auto 0.4 % (0.0-3.0); Eosinophils Absolute Auto 0.18 K/uL (0.00-0.50); Eosinophils Percent Auto 3.6 % (0.0-7.0); Hematocrit 39.6 % (33.0-51.0); Hemoglobin* 13.1 gm/dL (12.0-16.0); Immature Granulocytes Abs Auto 0.01 K/uL (0.00-0.30); Immature Granulocytes Pct Auto 0.2 %; Lymphocytes Percent Auto 29.8 % (20-44); Mean Corpuscular HGB Conc 33 gm/dL (32-36); Mean Corpuscular Hemoglobin 34 pg (26-34); Mean Corpuscular Volume 101 fL (80-100); Monocytes Percent Auto 8.2 % (0.0-11.0); Neutrophils Absolute Auto 2.91 K/uL (1.7-7.0); Neutrophils Percent Auto 57.8 % (42.0-72.0); Platelet Count* 197 K/uL (140-440); RDW Coefficient of Variation % 17.2 % (11.5-15.5); Red Blood Count 3.91 m/uL (4.00-5.20); White Blood Count* 5.03 K/uL (4.50-11.00)
[2023-12-23 07:42] LABS: Slide Review Reflex No
[2023-12-23 07:52] LABS: Albumin* 4.4 g/dL (3.3-5.0); Chloride* 106 mmol/L (96-114); Potassium* 4.3 mmol/L (3.6-5.1); Sodium* 137 mmol/L (135-149)
[2023-12-23 07:55] LABS: Alanine Aminotransferase* 33 U/L (4-35); Alkaline Phosphatase* 62 U/L (40-150); Anion Gap 8 mEq/L (7-15); Aspartate Amino Transferase* 40 U/L (12-35); Blood Urea Nitrogen* 22 mg/dL (7-30); Carbon Dioxide* 23 mmol/L (20-32); Creatinine* 0.7 mg/dL (0.5-1.5); Estimated Glomerular Filt Rate 87 ml/min; Glucose* 115 mg/dL (60-115)
[2023-12-23 07:56] LABS: Calcium* 9.1 mg/dL (8.4-10.6)
--- NOTE | 2023-12-24 15:00 | ONC.NURNOTE ---
lab results called called to Umu as stable CEA still pending umu reports episode of lips swelling about 3X normal size- unknown if bug bite took one dose of benadryl and swelling resolved no further issues today other than fatigue no changes in breathing lips are normal size
[2023-12-24 22:24] LABS: Carcinoembryonic Antigen 1.7 ng/mL
== END 2024-06-20 23:59 | disposition home or self-care (01) ==
LOC: CCIC 10:00
PROVIDERS: Physician Assistant; PCP Family Medicine; Referring Provider Family Medicine; Visit Provider Internal Medicine Hematology & Oncology
DX: C18.9 Malignant neoplasm of colon, unspecified (principal)
CPT/HCPCS: 36415; 71260; 74177; 80053; 82378; 85025; 99214; 99215; G0463; Q9967

== ENCOUNTER 2024-04-03 11:39 | Outpatient (CLI) | payer MEDICARE, OTHER, SELFPAY ==
--- NOTE | 2024-04-03 12:49 | P.ANES_ITS ---
Anesthesia Charges Start Date/Time Anesthesia Start Date: 04/03/24 Anesthesia Start Time: 12:22 Stop Date/Time Anesthesia Stop Date: 04/03/24 Anesthesia Stop Time: 12:45 Summary Extremes of Age - Over 70 or under 1: HEMATOLOGY NURSE EDUCATOR
== END 2024-04-03 11:40 | disposition home or self-care (01) ==
LOC: OP CLINIC 11:40
PROVIDERS: PCP Family Medicine; Visit Provider Internal Medicine Gastroenterology
DX: Z85.038 Personal history of other malignant neoplasm of large intestine (principal); Z98.0 Intestinal bypass and anastomosis status
CPT/HCPCS: 00811; 00812; 45378; 99100; J2704

== ENCOUNTER 2024-09-30 08:57 | Outpatient (CLI) | payer MEDICARE, OTHER, SELFPAY ==
--- NOTE | 2024-09-30 09:00 | CRLHL7_ITS ---
For Patients: As a result of the Century Cures Act, medical imaging exams and procedure reports are released immediately into your electronic medical record. You may view this report before your referring provider. If you have questions, please contact your health care provider. Indication: MALIGNANT NEOPLASM OF COLON Technique: CT Chest/Abd/Pelvis w/ 84cc isovue-370 intravenous contrast Please note that all CT scans at this facility use dose modulation, iterative reconstruction, and/or weight-based dosing when appropriate to reduce radiation dose to as low as reasonably achievable. Comparison: 03/24/2024 Findings: In the chest, stable ill-defined area of scarring within the right upper lobe. Dependent atelectasis/scarring noted bilaterally. No pleural effusion. Visualized thyroid is unremarkable. Atherosclerotic changes. No adenopathy. Similar appearance of the breast tissue. No suspicious osseous lesion. In the abdomen, there is no intrahepatic mass. Fatty infiltration of the liver noted. The spleen is within normal limits. A small hiatal hernia is incidentally noted. No adrenal nodule. Small bilateral renal cysts. Pancreas normal. Incidental splenule. Gallbladder within normal limits. Atherosclerotic changes. No retroperitoneal or mesenteric adenopathy. A few scattered sub cm mesenteric lymph nodes are present which are considered incidental. Midline supraumbilical abdominal wall hernia containing fat is unchanged. In the pelvis, the bladder is normal. Normal uterus. Ovaries are unchanged. No bowel obstruction or free air. No free fluid or abscess. Postop changes of partial right colonic resection. No pelvic or inguinal adenopathy. 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 No suspicious osseous lesion. Impression: No evidence of metastatic disease. Please note that all CT scans at this facility use dose modulation, iterative reconstruction, and/or weight-based dosing when appropriate to reduce radiation dose to as low as reasonably achievable. Dictated by Tim Fabian MD @ 09/30/2024 12:18:50 PM (Electronically Signed)
== END 2024-09-30 08:58 | disposition home or self-care (01) ==
LOC: CT 08:58
PROVIDERS: PCP Family Medicine; Visit Provider Internal Medicine Hematology & Oncology
DX: C18.9 Malignant neoplasm of colon, unspecified (principal)
CPT/HCPCS: 71260; 74177; Q9967

== ENCOUNTER 2024-10-07 10:00 | Outpatient (RCR) | payer MEDICARE, OTHER, SELFPAY ==
[2024-07-01 10:21] LABS: Hematocrit 45.8 % (33.0-51.0); Hemoglobin* 15.1 gm/dL (12.0-16.0); Immature Granulocytes Abs Auto 0.00 K/uL (0.00-0.30); Immature Granulocytes Pct Auto 0.0 %; Lymphocytes Absolute Auto 1.73 K/uL (0.90-2.90); Mean Corpuscular HGB Conc 33 gm/dL (32-36); Mean Corpuscular Hemoglobin 30 pg (26-34); Mean Corpuscular Volume 92 fL (80-100); RDW Coefficient of Variation % 14.7 % (11.5-15.5); Red Blood Count 4.96 m/uL (4.00-5.20); White Blood Count* 5.52 K/uL (4.50-11.00)
[2024-07-01 10:23] LABS: Slide Review Reflex No
[2024-07-01 10:30] LABS: Albumin* 4.6 g/dL (3.3-5.0); Chloride* 104 mmol/L (96-114)
[2024-07-01 10:31] LABS: Potassium* 3.7 mmol/L (3.6-5.1); Sodium* 138 mmol/L (135-149)
[2024-07-01 10:33] LABS: Anion Gap 8 mEq/L (7-15); Bilirubin Total* 0.8 mg/dL (0.1-1.5); Carbon Dioxide* 26 mmol/L (20-32); Creatinine* 0.7 mg/dL (0.5-1.5); Estimated Glomerular Filt Rate 87 ml/min
[2024-07-01 10:34] LABS: Alanine Aminotransferase* 51 U/L (4-35); Alkaline Phosphatase* 46 U/L (40-150); Aspartate Amino Transferase* 40 U/L (12-35); Blood Urea Nitrogen* 22 mg/dL (7-30); Calcium* 9.4 mg/dL (8.4-10.6); Glucose* 115 mg/dL (60-115); Total Protein* 7.7 g/dL (6.0-8.3)
[2024-07-03 02:24] LABS: Carcinoembryonic Antigen 1.6 ng/mL
[2024-09-30 09:03] LABS: Hematocrit 44.1 % (33.0-51.0); Hemoglobin* 14.7 gm/dL (12.0-16.0); Immature Granulocytes Abs Auto 0.01 K/uL (0.00-0.30); Immature Granulocytes Pct Auto 0.2 %; Lymphocytes Absolute Auto 1.60 K/uL (0.90-2.90); Mean Corpuscular HGB Conc 33 gm/dL (32-36); Mean Corpuscular Hemoglobin 31 pg (26-34); Mean Corpuscular Volume 93 fL (80-100); RDW Coefficient of Variation % 14.6 % (11.5-15.5); Red Blood Count 4.72 m/uL (4.00-5.20); White Blood Count* 5.33 K/uL (4.50-11.00)
[2024-09-30 09:05] LABS: Slide Review Reflex No
[2024-09-30 09:28] LABS: Albumin* 4.7 g/dL (3.3-5.0); Chloride* 105 mmol/L (96-114); Potassium* 4.4 mmol/L (3.6-5.1); Sodium* 139 mmol/L (135-149)
[2024-09-30 09:30] LABS: Blood Urea Nitrogen* 28 mg/dL (7-30); Creatinine* 0.9 mg/dL (0.5-1.5); Est. Creatinine Clearance* 35.88; Estimated Glomerular Filt Rate 64 ml/min
[2024-09-30 09:31] LABS: Alanine Aminotransferase* 49 U/L (4-35); Alkaline Phosphatase* 52 U/L (40-150); Anion Gap 10 mEq/L (7-15); Aspartate Amino Transferase* 46 U/L (12-35); Bilirubin Total* 0.9 mg/dL (0.1-1.5); Calcium* 9.4 mg/dL (8.4-10.6); Carbon Dioxide* 24 mmol/L (20-32); Glucose* 126 mg/dL (60-115); Total Protein* 7.5 g/dL (6.0-8.3)
[2024-10-01 20:30] LABS: Carcinoembryonic Antigen 1.6 ng/mL
== END 2024-12-28 23:59 | disposition home or self-care (01) ==
LOC: CCIC 10:00
PROVIDERS: PCP Family Medicine; Referring Provider Family Medicine; Visit Provider Internal Medicine Hematology & Oncology
DX: C18.9 Malignant neoplasm of colon, unspecified (principal)
CPT/HCPCS: 36415; 80053; 82378; 85025; 99214; G0463